=== PATIENT | female | born 1960 | race Caucasian/White ===

== ENCOUNTER 2017-02-15 15:13 | Emergency (ER) | payer MEDICARE, BC ==
[2017-02-15] MEDS ORDERED: Aspirin Low Dose CHEW TAB* 81 MG PO ONE (16:48)
--- NOTE | 2017-02-15 17:09 | RAD ---
INDICATION: Short of breath COMPARISON: Chest x-ray April 22, 2014 TECHNIQUE: An AP portable view obtained at 1657 hours is submitted. FINDINGS: Bones/Soft Tissues: There are no acute bony findings. Cardiomediastinal: The cardiomediastinal silhouette is normal. Lungs: There are no infiltrates. Pleura: There are no pleural effusions. Other: None IMPRESSION: NO ACTIVE DISEASE.
[2017-02-15 17:31] LABS: Hematocrit 42 % (35-47); Hemoglobin 13.8 g/dl (12.0-16.0); Mean Corpuscular HGB Conc 33 g/dl (31-36); Mean Corpuscular Hemoglobin 30 pg (27-31); Mean Corpuscular Volume 90 fL (80-97); Mean Platelet Volume 8 um3 (7.4-10.4); Red Blood Count 4.64 10^6/ul (4.0-5.4); Red Cell Distribution Width 13 % (10.5-15); White Blood Count 8.3 10^3/ul (3.5-10.8)
[2017-02-15 17:46] LABS: Albumin 4.2 g/dL (3.2-5.2); BUN/Creatinine Ratio 20.8 (8-20); EGFR Non-African American 83.2 (>60); Globulin 3.4 g/dL (2-4); Potassium 3.3 mmol/L (3.5-5.0); Total Bilirubin 0.3 mg/dL (0.2-1.0); Total Protein 7.6 g/dL (6.4-8.9)
[2017-02-15 18:18] LABS: TSH (Thyroid Stimulating Horm) 0.83 mcIU/mL (0.34-5.60)
[2017-02-15] MEDS ORDERED: Butalb/Acetamin/Caff TAB* 1 TAB PO ONE (19:27)
[2017-02-15] MEDS ORDERED: Metoclopramide IV* 5 MG/ML 2 ML VIAL IV ONE (19:40)
[2017-02-15] MEDS ORDERED: NS 0.9% 1000 ML* 1,000 ML IV ONE (19:40)
[2017-02-15] MEDS ORDERED: diPHENhydraMINE IV* 50 MG/ML 1 ml VIAL (BENADRYL) IV ONE (19:40)
[2017-02-15] MEDS ORDERED: Ketorolac INJ* 30 MG/ML 1 ML VIAL IV ONE (19:40)
[2017-02-15] MEDS ORDERED: predniSONE TAB* 20 MG PO ONE (21:43)
[2017-02-15] MEDS ORDERED: Clarithromycin TAB* 500 MG PO ONE (21:43)
[2017-02-15 21:50] VITALS: BP 138/85
--- NOTE | 2017-02-17 16:54 | ED ---
I, Kahlil,Sanchez, scribed for Larry Paris MD on 02/15/17 at 1709 . Shortness of Breath - HPI Summary HPI Summary: This 57 y/o female presents to ED for acute on chronic SOB since 0100 AM this morning. Exertion and ambulation make SOB worse. Positive mild chest discomfort , nausea, and dizziness. PMHx is significant for COPD, fibromyalgia, HTN, thyroid disease, and HLD. Primary care involves Dr. Abbott, but does not involve any chemist internship. - History of Current Complaint Chief Complaint: EDShortnessOfBreath Time Seen by Provider: 02/15/17 16:24 Hx Obtained From: Patient, Medical Records Onset/Duration: Still Present Timing: Constant Aggrevating Factors: Nothing Alleviating Factors: Nothing Associated Signs & Symptoms: Chest Pain Unrelated to Cough - Allergy/Home Medications Allergies/Adverse Reactions: Allergies Allergy/AdvReac Type Severity Reaction Status Date / Time No Known Allergies Allergy Verified 08/19/12 14:11 Home Medications: Home Medications DULoxetine DR CAP* [Cymbalta CAP*] 120 mg PO DAILY 02/15/17 [History Confirmed 02/15/17] Estradiol (NF) 1 mg PO DAILY 02/15/17 [History Confirmed 02/15/17] Fluticas/Salmet 115/21 HFA(NF) [Advair HFA 115/21 (NF)] 2 puff INH BID 02/15/17 [History Confirmed 02/15/17] Thyroid TAB* [Thyroid TAB 60 MG*] 60 mg PO [id number] 02/15/17 [History Confirmed 02/15/17] traZODone TAB* [Desyrel TAB*] 50 - 100 mg PO BEDTIME PRN 02/15/17 [History Confirmed 02/15/17] PMH/Surg Hx/FS Hx/Imm Hx Endocrine/Hematology History: Reports: Hx Thyroid Disease - HYPOTHYROIDISM Denies: Hx Diabetes Cardiovascular History: Reports: Hx Angina, Hx Hypercholesterolemia, Hx Hypertension - MEDICATED, Other Cardiovascular Problems/Disorders - NEGATIVE [place]ARDIAC [place] [facility] [place] Denies: Hx Coronary Artery Disease, Hx Myocardial Infarction, Hx Pacemaker/ ICD, Hx Valvular Heart Disease Respiratory History: Reports: Hx Asthma Denies: Hx Chronic Obstructive Pulmonary Disease (COPD) GI History: Reports: Hx Irritable Bowel, Other GI Disorders - RETROPERTINEAL HERNIA Musculoskeletal History: Reports: Hx Orthopedic Injury - FX RIGHT FOOT WITH ORTHOBOOT ON Sensory History: Reports: Hx Contacts or Glasses Denies: Hx Hearing Aid Opthamlomology History: Reports: Hx Contacts or Glasses Neurological History: Reports: Hx Migraine - ON MEDICATIONS Comment Only: Other Neuro Impairments/Disorders - FYBROMYALGIA Psychiatric History: Reports: Hx Anxiety, Hx Depression Denies: Hx Panic Disorder - Cancer History Hx Chemotherapy: No Hx Radiation Therapy: No - Surgical History Surgery Procedure, Year, and Place: 6 OVARIAN SURGERYS (TUBAL SX & REVERSAL) AT [facility] [place] [facility] [place]STERECTOM[place]. CARDIAC C[place] 2001 @ [facility] [place] Hx Anesthesia Reactions: No - Immunization History Date of Tetanus Vaccine: UTD Date of Influenza Vaccine: UTD Infectious Disease History: No Infectious Disease History: Denies: Hx Clostridium Difficile, Hx Hepatitis, Hx Human Immunodeficiency Virus (HIV), Hx of Known/Suspected MRSA, Hx Shingles, Hx Tuberculosis, Hx Known/ Suspected VRE, Hx Known/Suspected VRSA, History Other Infectious Disease, Traveled Outside the [place] in Last 30 Days - Family History Known Family History: Positive: Other - Breast CA - Social History Alcohol Use: None Hx Substance Use: No Substance Use Type: Reports: None Hx Tobacco Use: Yes Review of Systems Negative: Fever Positive: Chest Pain - mild Positive: Shortness Of Breath Positive: Nausea. Negative: Vomiting Neurological: Other - Positive for dizziness All Other Systems Reviewed And Are Negative: Yes Physical Exam Triage Information Reviewed: Yes Vital Signs On Initial Exam: Initial Vitals Temp Pulse Resp BP Pulse Ox 97.7 F 75 20 133/88 100 02/15/17 15:15 02/15/17 15:15 02/15/17 15:15 02/15/17 15:15 02/15/17 15:15 Vital Signs Reviewed: Yes Skin: Positive: Warm, Skin Color Reflects Adequate Perfusion, Dry Head/Face: Positive: Normal Head/Face Inspection Eyes: Positive: Normal ENT: Positive: Normal ENT inspection Neck: Positive: Supple, Nontender Respiratory/Lung Sounds: Positive: Clear to Auscultation, Breath Sounds Present Cardiovascular: Positive: RRR, Pulses are Symmetrical in both Upper and Lower Extremities Abdomen Description: Positive: Nontender, Soft Musculoskeletal: Positive: Normal Neurological: Positive: Normal Psychiatric: Positive: Affect/Mood Appropriate AVPU Assessment: Alert Diagnostics - Vital Signs Vital Signs Temp Pulse Resp BP Pulse Ox 02/15/17 16:29 97.4 F 60 18 00/00 100 02/15/17 15:15 97.7 F 75 20 133/88 100 - Laboratory Lab Results: Lab Results 02/15/17 02/15/17 02/15/17 Range/Units 17:15 17:15 17:15 WBC 8.3 (3.5-10.8) 10^3/ul RBC 4.64 (4.0-5.4) 10^6/ul Hgb 13.8 (12.0-16.0) g/dl Hct 42 (35-47) % MCV 90 (80-97) fL MCH 30 (27-31) pg MCHC 33 (31-36) g/dl RDW 13 (10.5-15) % Plt Count 223 (150-450) 10^3/ul MPV 8 (7.4-10.4) um3 Neut % (Auto) 58.8 (38-83) % Lymph % (Auto) 33.6 (25-47) % Mcclain % (Auto) 6.3 (1-9) % Eos % (Auto) 0.7 (0-6) % Baso % (Auto) 0.6 (0-2) % Absolute Neuts (auto) 4.9 (1.5-7.7) 10^3/ul Absolute Lymphs (auto) 2.8 (1.0-4.8) 10^3/ul Absolute Monos (auto) 0.5 (0-0.8) 10^3/ul Absolute Eos (auto) 0.1 (0-0.6) 10^3/ul Absolute Basos (auto) 0.1 (0-0.2) 10^3/ul Absolute Nucleated RBC 0 10^3/ul Nucleated RBC % 0 INR (Anticoag Therapy) (0.89-1.11) D-Dimer, Quantitative (Less Than 230) ng/mL Sodium 137 (133-145) mmol/L Potassium 3.3 L (3.5-5.0) mmol/L Chloride 105 (101-111) mmol/L Carbon Dioxide 25 (22-32) mmol/L Anion Gap 7 (2-11) mmol/L BUN 15 (6-24) mg/dL Creatinine 0.72 (0.51-0.95) mg/dL Est GFR ( Amer) 107.0 (>60) Est GFR (Non-Af Amer) 83.2 (>60) BUN/Creatinine Ratio 20.8 H (8-20) Glucose 105 H (70-100) mg/dL Lactic Acid 1.8 (0.5-2.0) mmol/L Calcium 9.0 (8.6-10.3) mg/dL Total Bilirubin 0.30 (0.2-1.0) mg/dL AST 26 (13-39) U/L ALT 19 (7-52) U/L Alkaline Phosphatase 83 (34-104) U/L Troponin I 0.00 (<0.04) ng/mL B-Natriuretic Peptide ( - 100) pg/mL Total Protein 7.6 (6.4-8.9) g/dL Albumin 4.2 (3.2-5.2) g/dL Globulin 3.4 (2-4) g/dL Albumin/Globulin Ratio 1.2 (1-3) TSH 0.83 (0.34-5.60) mcIU/mL 02/15/17 02/15/17 02/15/17 Range/Units 17:15 17:15 19:45 WBC (3.5-10.8) 10^3/ul RBC (4.0-5.4) 10^6/ul Hgb (12.0-16.0) g/dl Hct (35-47) % MCV (80-97) fL MCH (27-31) pg MCHC (31-36) g/dl RDW (10.5-15) % Plt Count (150-450) 10^3/ul MPV (7.4-10.4) um3 Neut % (Auto) (38-83) % Lymph % (Auto) (25-47) % Mcclain % (Auto) (1-9) % Eos % (Auto) (0-6) % Baso % (Auto) (0-2) % Absolute Neuts (auto) (1.5-7.7) 10^3/ul Absolute Lymphs (auto) (1.0-4.8) 10^3/ul Absolute Monos (auto) (0-0.8) 10^3/ul Absolute Eos (auto) (0-0.6) 10^3/ul Absolute Basos (auto) (0-0.2) 10^3/ul Absolute Nucleated RBC 10^3/ul Nucleated RBC % INR (Anticoag Therapy) 1.00 (0.89-1.11) D-Dimer, Quantitative < 200 (Less Than 230) ng/mL Sodium (133-145) mmol/L Potassium (3.5-5.0) mmol/L Chloride (101-111) mmol/L Carbon Dioxide (22-32) mmol/L Anion Gap (2-11) mmol/L BUN (6-24) mg/dL Creatinine (0.51-0.95) mg/dL Est GFR ( Amer) (>60) Est GFR (Non-Af Amer) (>60) BUN/Creatinine Ratio (8-20) Glucose (70-100) mg/dL Lactic Acid (0.5-2.0) mmol/L Calcium (8.6-10.3) mg/dL Total Bilirubin (0.2-1.0) mg/dL AST (13-39) U/L ALT (7-52) U/L Alkaline Phosphatase (34-104) U/L Troponin I 0.00 (<0.04) ng/mL B-Natriuretic Peptide 75 ( - 100) pg/mL Total Protein (6.4-8.9) g/dL Albumin (3.2-5.2) g/dL Globulin (2-4) g/dL Albumin/Globulin Ratio (1-3) TSH (0.34-5.60) mcIU/mL Result Diagrams: 02/15/17 17:15 02/15/17 17:15 Lab Statement: Any lab studies that have been ordered have been reviewed, and results considered in the medical decision making process. - Radiology CXR Xray Interpretation: No Acute Changes Radiology Interpretation Completed By: Radiologist - EKG 1520 Cardiac Rate: NL EKG Rhythm: Sinus Rhythm EKG Interpretation: LBBB, new from 06/13/2013 Re-Evaluation - Re-Evaluation First Eval Re-Evaluation Time: 21:15 Comment: in room to update pt on labwork with repeat trop, CXR, and EKG. Plan of care involving discharge and outpatient f/u is discussed, and she is agreeable. Course/Dx - Course Course Of Treatment: Ms. Castillo presented for mild SOB and a new mildly productive cough on top of a chronic cough. While here she developed a migraine which she apparently has frequently. She received relief from a ' migraine cocktail' here and was D/C'd with a steroid burst and antibiotics. - Diagnoses Provider Diagnoses: Bronchitis Discharge - Discharge Plan Condition: Stable Disposition: HOME Prescriptions: Clarithromycin TAB* [Biaxin TAB*] 500 mg PO BID #20 tab Prednisone [Deltasone] 20 mg PO BID #12 tab Patient Education Materials: Prednisone (By mouth), Clarithromycin (By mouth), Acute Bronchitis (ED) Referrals: Chip Silva MD [Primary Care Provider] - 2 Days The documentation as recorded by the Kahlil montoya Soohyun accurately reflects the service I personally performed and the decisions made by me, Larry Paris MD.
== END 2017-02-15 21:54 | disposition home or self-care (01) ==
LOC: ED 15:13
DX: J40 Bronchitis, not specified as acute or chronic (principal); I44.7 Left bundle-branch block, unspecified; E03.9 Hypothyroidism, unspecified; J45.909 Unspecified asthma, uncomplicated; I10 Essential (primary) hypertension; E78.00 Pure hypercholesterolemia, unspecified; M79.7 Fibromyalgia; F41.9 Anxiety disorder, unspecified; F32.9 Major depressive disorder, single episode, unspecified
CPT/HCPCS: 36415; 71010; 80053; 83605; 83880; 84443; 84484; 85025; 85379; 85610; 93005; 96360; 96374; 96375; 99284; A9270-GY; J1200; J1885; J2765; J7512

== ENCOUNTER 2017-09-10 15:15 | Observation (INO) | payer MEDICARE, BC ==
[2017-09-10] MEDS ORDERED: NS 0.9% 1000 ML* 1,000 ML IV ONE (15:32)
[2017-09-10] MEDS ORDERED: Ondansetron INJ* 2 MG/ML VIAL IV ONE (15:32)
[2017-09-10] MEDS ORDERED: Albuterol 2.5 MG/3 ML NEB.SOL* (0.083%) INH ONE (15:56)
[2017-09-10] MEDS ORDERED: methylPREDNISolone 125 MG* 2 ML VIAL IV ONE (15:56)
[2017-09-10 16:09] LABS: ABS Basophils 0 10^3/ul (0-0.2); ABS Eosinophils 0 10^3/ul (0-0.6); ABS Lymphocytes 1.5 10^3/ul (1.0-4.8); ABS Monocytes 0.6 10^3/ul (0-0.8); ABS Neutrophils 3.6 10^3/ul (1.5-7.7); ABS Nucleated RBC 0 10^3/ul; Eosinophil % 0.2 % (0-6); Hematocrit 38 % (35-47); Hemoglobin 12.9 g/dl (12.0-16.0); Lymphocyte % 26.8 % (25-47); Mean Corpuscular HGB Conc 34 g/dl (31-36); Mean Corpuscular Hemoglobin 30 pg (27-31); Mean Corpuscular Volume 88 fL (80-97); Mean Platelet Volume 8 um3 (7.4-10.4); Nucleated Red Blood Cells % 0.1; Platelet Count 171 10^3/ul (150-450); Red Cell Distribution Width 13 % (10.5-15); White Blood Count 5.8 10^3/ul (3.5-10.8)
[2017-09-10 16:20] LABS: INR 1.13 (0.77-1.02)
[2017-09-10 16:23] LABS: EGFR Non-African American 104.7 (>60)
--- NOTE | 2017-09-10 16:27 | RAD ---
Indication: Shortness of breath. 2 views of the chest demonstrate no mediastinal shift. Heart is of normal size and configuration. Lung hollings[place] appear clear. When compared to previous exam of February 15, 2017 no significant change is noted. IMPRESSION: NO ACTIVE CARDIOPULMONARY DISEASE IS PRESENT.
[2017-09-10] MEDS ORDERED: Oseltamivir CAP* 75 MG CAP PO ONE (17:02)
[2017-09-10] MEDS ORDERED: Potassium Chlor TAB* 20 MEQ TAB.ER PO ONE (17:03)
[2017-09-10] MEDS ORDERED: Albuterol/Ipratropium NEB.SOL* Albuterol 2.5 MG/Ipratropium 0.5 MG 3 ML INH ONE (17:19)
[2017-09-10] MEDS ORDERED: Meperidine SYRINGE* 50 MG/ML IV ONE (17:20)
[2017-09-10] MEDS ORDERED: Acetaminophen TAB* 325 MG PO PRN (18:09)
[2017-09-10] MEDS ORDERED: Albuterol/Ipratropium NEB.SOL* Albuterol 2.5 MG/Ipratropium 0.5 MG 3 ML INH PRN (18:09)
[2017-09-10] MEDS ORDERED: Benzocaine/Menthol LOZ* 1 LOZENGE MT PRN (18:09)
[2017-09-10] MEDS ORDERED: Phenol 1.4% Spray* 177 ML BTL MT PRN (18:09)
[2017-09-10] MEDS ORDERED: Polyethylene Glycol 3350* 17 GM PACKET PO PRN (18:10)
[2017-09-10] MEDS ORDERED: LORazepam TAB(*) 0.5 MG PO PRN (18:10)
[2017-09-10] MEDS ORDERED: NS 0.9% 1000 ML* 1,000 ML IV SCH (18:15)
[2017-09-10] MEDS ORDERED: Oseltamivir CAP* 75 MG CAP PO SCH (21:00)
[2017-09-10] MEDS ORDERED: traZODone TAB* 50 MG TAB PO SCH (21:00)
[2017-09-10] MEDS ORDERED: Atorvastatin* 20 MG TAB PO SCH (21:00)
[2017-09-10] MEDS: Mometasone/Formoter 200/5 MDI INH SCH (21:19)
[2017-09-10] MEDS: Thyroid TAB* 60 MG PO SCH (21:33)
[2017-09-10] MEDS: Nabumetone TAB* 500 MG PO SCH (21:34)
[2017-09-10] MEDS: Benzonatate CAP* 100 MG PO PRN (21:34)
[2017-09-10] MEDS: Heparin VIAL(*) 5000 UNITS/ML VIAL (FIVE THOUSAND) SUBCUT SCH (21:35)
--- NOTE | 2017-09-10 21:46 | HP ---
CC: Dr. Abbott * ADMISSION HISTORY AND PHYSICAL: DATE OF ADMISSION: 09/10/17 PRIMARY CARE PROVIDER: Dr. Abbott at [place]. MY ATTENDING WHILE IN THE HOSPITAL: Ravinder Griffin MD * (DICTATED BY NICHO MOSELEY) CHIEF COMPLAINT: Two days of flu-like symptoms. HISTORY OF PRESENT ILLNESS: Ms. Castillo is a 57-year-old female with past medical history significant for COPD/asthma, hypertension, migraine, anxiety, depression and dyslipidemia as well as kidney stones who presents with 2 days of cough, sore throat, phlegm production, fatigue, muscle aches and pleuritic chest pain. The patient's had these symptoms starting approximately 1 day before she did. The patient states that her symptoms started mainly with a cough followed by the chest pain and they have been getting progressively worse to the point that it became very difficult for her to breathe. The patient used her rescue inhaler a couple of times a day and states that it helps occasionally. The patient has brought up phlegm frequently that is orange in color and occasionally has a small amount of blood mixed into it. The patient states that when she coughs up phlegm, sometimes she vomits along with it. The patient denies abdominal pain, diarrhea. The patient states she has been in and out of hospital for the last 6 months. She has been admitted 4 separate times for kidney stones mostly with stenting and supportive treatments. The patient states that she had an infection with one of these. The patient denies any other complications that she had with her kidney stones. The patient denies any urinary symptoms at this time including dysuria, hematuria, polyuria, hesitancy or frequent urination. The patient states she has a history of migraines and had a frontal headache with this episode. The patient states that her chest pain is 7/10 at rest worse with movement that spread up her sternum and now also affects her shoulders equally bilaterally. The patient states it is worse when she is coughing and is 10/10 and reproducible with palpation. The patient states she has been having fevers and chills, but denies any diaphoresis specifically related to the chest pain. The patient said she has shortness of breath at all times and it is not worse when she is having chest pain. The patient went to her primary care provider's office and was sent to emergency room by Dr. Sesay due to wheezing and respiratory distress. The patient was given 3 doses of inhalation treatments in the hospital and was given IV Solu-Medrol, all of which helped. The patient was found to be positive for influenza A and was believed to have a COPD exacerbation and was referred for admission. PAST MEDICAL HISTORY: 1. Hypertension. 2. Hypothyroidism. 3. Asthma. 4. COPD. 5. Migraines. 6. Anxiety. 7. Depression. 8. Dyslipidemia. 9. Fibromyalgia. 10. Kidney stones. 11. Pyelonephritis. PAST SURGICAL HISTORY: 1. Hysterectomy. 2. Ureteral stenting. 3. Tubal ligation reversal. MEDICATIONS: 1. Simvastatin 40 mg p.o. at bedtime. 2. Estradiol 1 mg p.o. daily. 3. Thyroid 60 mg p.o. Tuesday, Tuesday, Tuesday, , Tuesday and Tuesday. 4. Advair 115/21, 2 puffs inhalation b.i.d. 5. MiraLax 17 g p.o. daily as needed. 6. Fioricet q.4 hours as needed for headache. 7. Trazodone 50 mg p.o. at bedtime. 8. Duloxetine 60 mg p.o. daily. 9. Relafen 500 mg p.o. b.i.d. 10. Nuvigil 250 mg p.o. q.a.m. 11. Orphenadrine 100 mg p.o. daily. 12. Linzess 290 mcg p.o. daily. 13. Lorazepam 0.5 mg p.o. q.8 hours as needed for anxiety. 14. Atenolol 50 mg p.o. daily. ALLERGIES: No known drug allergies. FAMILY HISTORY: The patient's father of an IA in his 50s. The patient's mother is living and has congestive heart failure and diabetes mellitus. The patient has history of breast, ovarian and skin cancer in the family. SOCIAL HISTORY: The patient has approximate 30 years a pack history of smoking , quit in the year 1999. The patient drinks occasional alcohol, denies ever having illicit drug use. 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 The patient is , has 2 children. REVIEW OF SYSTEMS: A 14-point review of systems was obtained, is negative except as above. PHYSICAL EXAMINATION GENERAL: The patient is a 57-year-old female, who appears stated age and is sitting in the bed, in no acute distress. VITAL SIGNS: At the time of evaluation, temperature 99.9, pulse rate 74, respiratory rate 14, oxygen saturation 98% on room air, blood pressure 119/68. The patient's respiratory rate upon admission to the emergency department was 28. HEENT: Head: Normocephalic, atraumatic. Sclerae anicteric. No conjunctival injection. Nasal mucosa moist without signs of scabs or bleeding. Oral mucosa moist. Pharyngeal erythema without discharge or exudate or postnasal drip. NECK: Supple, nontender. No lymphadenopathy. No carotid bruits auscultated. RESPIRATORY: Diminished at the bilateral bases. No wheezes, rales rhonchi. Good air exchange bilaterally. Egophony negative. CARDIAC: Regular rate and rhythm. No clicks, murmurs, gallops or rubs. Pulses are 2+ in bilateral dorsalis pedis, posterior tibialis and radial areas. No lower extremity edema noted. The patient's chest pain is reproducible with palpation, PMI nondisplaced. ABDOMEN: Soft, nontender, nondistended. Bowel sounds present, normoactive in all 4 quadrants. No hepatosplenomegaly or abdominal bruits auscultated. GENITOURINARY: No suprapubic tenderness or CVA tenderness. SKIN: Clean, dry and intact. No rash. NEURO: Cranial nerves II through XII intact. No focal deficits. Alert and oriented x3. PSYCHIATRIC: Pleasant and cooperative. LABORATORY DATA/DIAGNOSTIC STUDIES: In the emergency department, white blood cell count 5.8, hemoglobin 12.9, hematocrit 38, platelet count 171,000. INR 1.13. D- dimer less than 200. Sodium 134, potassium 3.2, chloride 103, carbon dioxide 21, anion gap 10, BUN 10, creatinine 0.59, glucose 96. Lactic acid 0.9 , calcium 8.7. Total bilirubin 1.3, AST 22, ALT 12, alkaline phosphate 82. Total creatine kinase 55, CK-MB 0.7, troponin I 0.00. CRP 93.42. BNP 33, total protein 6.9, albumin 3.8, globulin 3.1. Influenza A positive. Influenza B negative. Group A Strep negative. Chest x-ray read as no active cardiopulmonary disease. Electrocardiogram read as normal sinus rhythm, rate of 68, left bundle branch block, uninterpretable ST segments. The patient had identical left bundle branch block on previous EKG from last year. This is new since 2013. QTC of 488. No signs of hypertrophy or enlargement, left axis deviation or abnormalities. IMPRESSION: The patient is a 57-year-old female with past medical history significant for chronic obstructive pulmonary disease, asthma, anxiety, migraines, hypertension and dyslipidemia who presents with positive influenza A and a chronic obstructive pulmonary disease exacerbation. The patient will be admitted to observation in the hospital for Tamiflu, steroids, inhalers and supportive care. ASSESSMENT AND PLAN: 1. Chronic obstructive pulmonary disease exacerbation, moderate. The patient had significant wheezing and tachypnea. On arrival to the emergency department , the patient was given Solu-Medrol and inhalation treatments. The patient improves greatly with these, but does not have a nebulizer available at home and only had minimal improvement from her rest inhaler when she took it at home. The patient will benefit from inhalation treatments while in the hospital as well as steroids and fluids and supportive care. The patient is not septic at this time. The patient does not have history of fevers. The patient has no signs of respiratory distress at the time of evaluation. Continue the patient's home LABA and inhaled corticosteroid inhaler. 2. Influenza A. The patient has influenza A likely driving her chronic obstructive pulmonary disease exacerbation. We will restart on Tamiflu for 10 total doses, the first of which she received in the emergency department. Discussed with the patient's family post exposure prophylaxis for her family including small children to whom this flu has been abnormally virulent. 3. Hypertension. Normotensive. Continue atenolol. 4. Hypothyroidism. Continue patient's thyroid medication. 5. Anxiety and depression. Continue Duloxetine. 6. Migraine. The patient's current headache does not fit the description of migraine and likely just represented to coughing and/or the flu. The patient has Tylenol and Relafen available for pain control. 5. Dyslipidemia. Continue the patient's statin. 6. Kidney stones. The patient was on topiramate when she had these kidney stones. The patient's topiramate has been discontinued. We will check urinalysis. The patient has no current symptoms. 7. DVT prophylaxis. The patient is a high risk. We will treat with heparin. 8. FEN. The patient will be on fluids. Normal saline 75 mL an hour. The patient will have a heart healthy diet, caffeine okay. 9. Code status. The patient will be a full code. The patient would like her healthcare proxy to be her daughter, Emir Tran. DISPOSITION: The patient is admitted to observation. TIME SPENT: Approximately 60 minutes were spent on this admission, 30 of which was spent [id number] with the patient obtaining history and physical and discussing the treatment plan. This plan has been discussed with my attending, Dr. Ravinder Griffin, and he is in agreement. NICHO MOSELEY [id number]/CPS #: [id number] MON[place]
--- NOTE | 2017-09-10 22:41 | ED ---
Jason Collins Tiffany, scribed for Genevieve Sommer MD on 09/10/17 at 1615 . Complex/Multi-Sys Presentation - HPI Summary HPI Summary: The patient is a 57 year old F BIBA from Dr. Sesay's office to [facility] complains of cough with brown phlegm since yesterday. The patient rates the pain 6/10 in severity. Symptoms aggravated by nothing. Symptoms alleviated by nothing. Reports chest pain. Says chest hurts every time I breathe and cough. Patient has been sick the past two days. Reports shortness of breath, fever, and body aches. Has had sore throat since yesterday. Began vomiting today so she saw Dr. Sesay. Has history of COPD for which she takes 3 inhalers. Received a nebulizer treatment via EMS enroute from Dr. Sesay's office. - History Of Current Complaint Chief Complaint: EDFluSymptoms Time Seen by Provider: 09/10/17 15:24 Hx Obtained From: Patient, Other: - Dr. Sesay who called ahead Onset/Duration: Gradual Onset, Lasting Days - Since two days ago, Still Present , Worse Since - yesterday and today Timing: Constant Severity Currently: Moderate - 6/10 Severity Initially: Moderate Location: Negative Aggravating Factor(s): Nothing Alleviating Factor(s): Nothing Associated Signs And Symptoms: Positive: Weakness, SOB, Cough, Wheezing, Fever, Other - myalgias - Allergies/Home Medications Allergies/Adverse Reactions: Allergies Allergy/AdvReac Type Severity Reaction Status Date / Time morphine Allergy Itching Verified 09/10/17 15:37 Home Medications: Home Medications Armodafinil (NF) [Nuvigil (NF)] 250 mg PO QAM 09/10/17 [History Confirmed ] Atenolol TAB* [Tenormin TAB* 50 MG] 50 mg PO DAILY 09/10/17 [History Confirmed 09/10/17] Butalbital/Aspirin/Caffeine [Rfdgjsgbwj-NII-Raltcyti Cap] 1 each PO Q4HR PRN [History Confirmed 09/10/17] DULoxetine DR CAP* [Cymbalta CAP*] 60 mg PO DAILY 09/10/17 [History Confirmed ] LORazepam TAB(*) [Ativan 0.5 MG TAB (*)] 0.5 mg PO Q8H PRN 09/10/17 [History Confirmed 09/10/17] Linaclotide (NF) [Linzess (NF)] 290 mcg PO DAILY 09/10/17 [History Confirmed ] Nabumetone TAB* [Relafen TAB*] 500 mg PO BID 09/10/17 [History Confirmed ] Orphenadrine Citrate 100 mg PO DAILY 09/10/17 [History Confirmed 09/10/17] Polyethylene Glycol 3350* [Miralax*] 17 gm PO DAILY PRN 09/10/17 [History Confirmed 09/10/17] traZODone TAB* [Desyrel TAB*] 50 mg PO BEDTIME 09/10/17 [History Confirmed 09/10] PMH/Surg Hx/FS Hx/Imm Hx Previously Healthy: No Endocrine/Hematology History: Reports: Hx Thyroid Disease - HYPOTHYROIDISM Denies: Hx Diabetes Cardiovascular History: Reports: Hx Angina, Hx Hypercholesterolemia, Hx Hypertension - MEDICATED, Other Cardiovascular Problems/Disorders - NEGATIVE CARDIAC CATH 2001 @ [facility] – [place] Denies: Hx Coronary Artery Disease, Hx Myocardial Infarction, Hx Pacemaker/ ICD, Hx Valvular Heart Disease Respiratory History: Reports: Hx Asthma, Hx Chronic Obstructive Pulmonary Disease (COPD) GI History: Reports: Hx Irritable Bowel Musculoskeletal History: Reports: Hx Orthopedic Injury - FX RIGHT FOOT Sensory History: Reports: Hx Contacts or Glasses Denies: Hx Hearing Aid Opthamlomology History: Reports: Hx Contacts or Glasses Neurological History: Reports: Hx Migraine Comment Only: Other Neuro Impairments/Disorders - FYBROMYALGIA Psychiatric History: Reports: Hx Anxiety, Hx Depression Denies: Hx Panic Disorder - Cancer History Hx Chemotherapy: No Hx Radiation Therapy: No - Surgical History Surgery Procedure, Year, and Place: 6 OVARIAN SURGERYS (TUBAL SX & REVERSAL) AT [facility] and [facility] [place]. HYSTERECTOMY. CARDIAC CATH 2001 @ [facility] – [place] Hx Anesthesia Reactions: No - Immunization History Date of Tetanus Vaccine: UTD Date of Influenza Vaccine: UTD Infectious Disease History: No Infectious Disease History: Denies: Hx Clostridium Difficile, Hx Hepatitis, Hx Human Immunodeficiency Virus (HIV), Hx of Known/Suspected MRSA, Hx Shingles, Hx Tuberculosis, Hx Known/ Suspected VRE, Hx Known/Suspected VRSA, History Other Infectious Disease, Traveled Outside the [place] in Last 30 Days - Family History Known Family History: Positive: Cardiac Disease - Father with CO at 50, Other - Breast CA - Social History Lives: With Family Alcohol Use: None Hx Substance Use: No Substance Use Type: Reports: None Hx Tobacco Use: Yes Smoking Status (MU): Former Smoker Review of Systems Positive: Fever Positive: Sore Throat Positive: Chest Pain - chest hurts every time I breathe and cough" Positive: Shortness Of Breath, Cough - With brown phlegm Positive: Vomiting Positive: Myalgia Positive: Weakness - generalized Psychological: Normal All Other Systems Reviewed And Are Negative: Yes Physical Exam - Summary Physical Exam Summary: Appearance: Ill-appearing, uncomfortable, Well-nourished, short of breath at rest, dry heaves Skin: Warm, color reflects adequate perfusion Head: Normal Head/Face inspection Eyes: Conjunctiva clear ENT: pharynx was red, no tonsilar enlargement, no exudates, TMs are clear Neck: Supple, no nodes, no JVD. Respiratory: wheezes bilaterally, expiratory throughout Cardio: RRR, No murmur, pulses normal, brisk capillary refill Abdomen: soft, nontender, no masses Bowel sounds: present Musculoskeletal: Strength Intact/ ROM intact. No calf tenderness. No edema. Neuro: Alert, muscle tone normal, facial symmetry, speech normal, sensory/motor intact Psychological: Normal Triage Information Reviewed: Yes Vital Signs On Initial Exam: Initial Vitals BP 119/69 09/10/17 15:31 Vital Signs Reviewed: Yes Diagnostics - Vital Signs Vital Signs Temp Pulse Resp BP Pulse Ox 09/10/17 15:37 99.9 F 74 28 119/69 98 09/10/17 15:33 72 98 09/10/17 15:31 119/69 - Laboratory Lab Results: Lab Results 09/10/17 09/10/17 09/10/17 Range/Units 15:57 15:57 15:57 WBC 5.8 (3.5-10.8) 10^3/ul RBC 4.30 (4.0-5.4) 10^6/ul Hgb 12.9 (12.0-16.0) g/dl Hct 38 (35-47) % MCV 88 (80-97) fL MCH 30 (27-31) pg MCHC 34 (31-36) g/dl RDW 13 (10.5-15) % Plt Count 171 (150-450) 10^3/ul MPV 8 (7.4-10.4) um3 Neut % (Auto) 62.3 (38-83) % Lymph % (Auto) 26.8 (25-47) % Dillingham % (Auto) 10.2 H (0-7) % Eos % (Auto) 0.2 (0-6) % Baso % (Auto) 0.5 (0-2) % Absolute Neuts (auto) 3.6 (1.5-7.7) 10^3/ul Absolute Lymphs (auto) 1.5 (1.0-4.8) 10^3/ul Absolute Monos (auto) 0.6 (0-0.8) 10^3/ul Absolute Eos (auto) 0 (0-0.6) 10^3/ul Absolute Basos (auto) 0 (0-0.2) 10^3/ul Absolute Nucleated RBC 0 10^3/ul Nucleated RBC % 0.1 INR (Anticoag Therapy) (0.77-1.02) D-Dimer, Quantitative (Less Than 230) ng/mL Sodium 134 (133-145) mmol/L Potassium 3.2 L (3.5-5.0) mmol/L Chloride 103 (101-111) mmol/L Carbon Dioxide 21 L (22-32) mmol/L Anion Gap 10 (2-11) mmol/L BUN 10 (6-24) mg/dL Creatinine 0.59 (0.51-0.95) mg/dL Est GFR ( Amer) 134.6 (>60) Est GFR (Non-Af Amer) 104.7 (>60) BUN/Creatinine Ratio 16.9 (8-20) Glucose 96 (70-100) mg/dL Lactic Acid (0.5-2.0) mmol/L Calcium 8.7 (8.6-10.3) mg/dL Total Bilirubin 0.30 (0.2-1.0) mg/dL AST 22 (13-39) U/L ALT 12 (7-52) U/L Alkaline Phosphatase 82 (34-104) U/L Total Creatine Kinase 55 (10-223) U/L CK-MB (CK-2) 0.7 (0.6-6.3) ng/mL Troponin I 0.00 (<0.04) ng/mL C-Reactive Protein 93.42 H (< 5.00) mg/L B-Natriuretic Peptide 33 ( - 100) pg/mL Total Protein 6.9 (6.4-8.9) g/dL Albumin 3.8 (3.2-5.2) g/dL Globulin 3.1 (2-4) g/dL Albumin/Globulin Ratio 1.2 (1-3) Procalcitonin (<0.6) ng/mL Influenza A (Rapid) (Negative) Influenza B (Rapid) (Negative) Group A Strep Rapid (Negative) 09/10/17 09/10/17 09/10/17 Range/Units 15:57 15:57 15:58 WBC (3.5-10.8) 10^3/ul RBC (4.0-5.4) 10^6/ul Hgb (12.0-16.0) g/dl Hct (35-47) % MCV (80-97) fL MCH (27-31) pg MCHC (31-36) g/dl RDW (10.5-15) % Plt Count (150-450) 10^3/ul MPV (7.4-10.4) um3 Neut % (Auto) (38-83) % Lymph % (Auto) (25-47) % Dillingham % (Auto) (0-7) % Eos % (Auto) (0-6) % Baso % (Auto) (0-2) % Absolute Neuts (auto) (1.5-7.7) 10^3/ul Absolute Lymphs (auto) (1.0-4.8) 10^3/ul Absolute Monos (auto) (0-0.8) 10^3/ul Absolute Eos (auto) (0-0.6) 10^3/ul Absolute Basos (auto) (0-0.2) 10^3/ul Absolute Nucleated RBC 10^3/ul Nucleated RBC % INR (Anticoag Therapy) 1.13 H (0.77-1.02) D-Dimer, Quantitative < 200 (Less Than 230) ng/mL Sodium (133-145) mmol/L Potassium (3.5-5.0) mmol/L Chloride (101-111) mmol/L Carbon Dioxide (22-32) mmol/L Anion Gap (2-11) mmol/L BUN (6-24) mg/dL Creatinine (0.51-0.95) mg/dL Est GFR ( Amer) (>60) Est GFR (Non-Af Amer) (>60) BUN/Creatinine Ratio (8-20) Glucose (70-100) mg/dL Lactic Acid 0.9 (0.5-2.0) mmol/L Calcium (8.6-10.3) mg/dL Total Bilirubin (0.2-1.0) mg/dL AST (13-39) U/L ALT (7-52) U/L Alkaline Phosphatase (34-104) U/L Total Creatine Kinase (10-223) U/L CK-MB (CK-2) (0.6-6.3) ng/mL Troponin I (<0.04) ng/mL C-Reactive Protein (< 5.00) mg/L B-Natriuretic Peptide ( - 100) pg/mL Total Protein (6.4-8.9) g/dL Albumin (3.2-5.2) g/dL Globulin (2-4) g/dL Albumin/Globulin Ratio (1-3) Procalcitonin < 0.1 (<0.6) ng/mL Influenza A (Rapid) (Negative) Influenza B (Rapid) (Negative) Group A Strep Rapid (Negative) 09/10/17 09/10/17 Range/Units 16:03 16:03 WBC (3.5-10.8) 10^3/ul RBC (4.0-5.4) 10^6/ul Hgb (12.0-16.0) g/dl Hct (35-47) % MCV (80-97) fL MCH (27-31) pg MCHC (31-36) g/dl RDW (10.5-15) % Plt Count (150-450) 10^3/ul MPV (7.4-10.4) um3 Neut % (Auto) (38-83) % Lymph % (Auto) (25-47) % Dillingham % (Auto) (0-7) % Eos % (Auto) (0-6) % Baso % (Auto) (0-2) % Absolute Neuts (auto) (1.5-7.7) 10^3/ul Absolute Lymphs (auto) (1.0-4.8) 10^3/ul Absolute Monos (auto) (0-0.8) 10^3/ul Absolute Eos (auto) (0-0.6) 10^3/ul Absolute Basos (auto) (0-0.2) 10^3/ul Absolute Nucleated RBC 10^3/ul Nucleated RBC % INR (Anticoag Therapy) (0.77-1.02) D-Dimer, Quantitative (Less Than 230) ng/mL Sodium (133-145) mmol/L Potassium (3.5-5.0) mmol/L Chloride (101-111) mmol/L Carbon Dioxide (22-32) mmol/L Anion Gap (2-11) mmol/L BUN (6-24) mg/dL Creatinine (0.51-0.95) mg/dL Est GFR ( Amer) (>60) Est GFR (Non-Af Amer) (>60) BUN/Creatinine Ratio (8-20) Glucose (70-100) mg/dL Lactic Acid (0.5-2.0) mmol/L Calcium (8.6-10.3) mg/dL Total Bilirubin (0.2-1.0) mg/dL AST (13-39) U/L ALT (7-52) U/L Alkaline Phosphatase (34-104) U/L Total Creatine Kinase (10-223) U/L CK-MB (CK-2) (0.6-6.3) ng/mL Troponin I (<0.04) ng/mL C-Reactive Protein (< 5.00) mg/L B-Natriuretic Peptide ( - 100) pg/mL Total Protein (6.4-8.9) g/dL Albumin (3.2-5.2) g/dL Globulin (2-4) g/dL Albumin/Globulin Ratio (1-3) Procalcitonin (<0.6) ng/mL Influenza A (Rapid) Positive H (Negative) Influenza B (Rapid) Negative (Negative) Group A Strep Rapid Negative (Negative) Result Diagrams: 09/11/17 05:22 09/11/17 05:22 Lab Statement: Any lab studies that have been ordered have been reviewed, and results considered in the medical decision making process. - Radiology CXR Radiology Interpretation Completed By: Radiologist - NO ACTIVE CARDIOPULMONARY DISEASE IS PRESENT. ED physician has reviewed this radiology report. - EKG 15:38 Cardiac Rate: NL - 68 BPM EKG Rhythm: Sinus Rhythm ST Segment: Non-Specific Ectopy: None EKG Interpretation: Nml AV. Prolonged IVCT with LBBB. Nml QTc. Negative axis -8. EKG Comparison: No Significant Change - Compared to 02/15/17 Re-Evaluation - Re-Evaluation First Eval Re-Evaluation Time: 17:02 Change: Unchanged Comment: Patient reports chest pain and is still wheezing. She is informed about Influenza A. She agrees to be admitted. Complex Multi-Symp Course/Dx Course Of Treatment: Allergies noted. High blood pressure noted. Medications reviewed this visit. EKG no change from 02/15/17. Nml CXR. Given Albuterol by EMS en route and in ED course. Tested positive for Influenza A. Diagnosed with COPD exacerbation, hypokalemia and Influenza A. Discussed with Dr. Sesay at 17: 12, who agrees with admission plan and who will look for patients phone that is reported missing per patient. At 17:25, Dr. Sesay called back to say she spoke with Dr. Gray Drew who looked in all of the patient rooms and reported that he couldn't find patient's phone, and that the cleaning crew had already left and could possibly have her phone in safe keeping, or patient left phone in her car. Consulted with hospitalist who agrees to admission. Patient agreeable to admission. - Diagnoses Provider Diagnoses: Influenza A, COPD exacerbation, Hypokalemia - Physician Notifications Discussed Care Of Patient With: Ravinder Griffin Time Discussed With Above Provider: 17:29 Instructed by Provider To: Other - Dr. Griffin agrees to admit patient. Discharge - Discharge Plan Condition: Stable Disposition: ADMITTED TO [facility] documentation as recorded by the Jason montoya Tiffany accurately reflects the service I personally performed and the decisions made by me, Genevieve Sommer MD.
[2017-09-11] MEDS: Heparin VIAL(*) 5000 UNITS/ML VIAL (FIVE THOUSAND) SUBCUT SCH ×2 (05:26→13:18)
[2017-09-11 05:43] LABS: ABS Basophils 0 10^3/ul (0-0.2); ABS Eosinophils 0 10^3/ul (0-0.6); ABS Monocytes 0.6 10^3/ul (0-0.8); ABS Neutrophils 2.6 10^3/ul (1.5-7.7); ABS Nucleated RBC 0 10^3/ul; Eosinophil % 0 % (0-6); Hematocrit 34 % (35-47); Hemoglobin 11.7 g/dl (12.0-16.0); Lymphocyte % 23.8 % (25-47); Mean Corpuscular HGB Conc 34 g/dl (31-36); Mean Corpuscular Hemoglobin 31 pg (27-31); Mean Corpuscular Volume 90 fL (80-97); Mean Platelet Volume 8 um3 (7.4-10.4); Nucleated Red Blood Cells % 0; Platelet Count 160 10^3/ul (150-450); Red Blood Count 3.84 10^6/ul (4.0-5.4); Red Cell Distribution Width 14 % (10.5-15); White Blood Count 4.2 10^3/ul (3.5-10.8)
[2017-09-11 06:00] LABS: EGFR Non-African American 123.9 (>60)
[2017-09-11] MEDS: Mometasone/Formoter 200/5 MDI INH SCH (07:08)
[2017-09-11] MEDS ORDERED: Butalb/Acetamin/Caff TAB* 1 TAB PO PRN (08:29)
[2017-09-11] MEDS ORDERED: Oseltamivir CAP* 75 MG CAP PO SCH (09:00)
[2017-09-11] MEDS ORDERED: Atenolol TAB* 50 MG PO SCH (09:00)
[2017-09-11] MEDS ORDERED: DULoxetine DR CAP* 60 MG CAP.DR PO SCH (09:00)
[2017-09-11] MEDS ORDERED: predniSONE TAB* 20 MG PO SCH (09:00)
[2017-09-11] MEDS: Nabumetone TAB* 500 MG PO SCH (09:33)
[2017-09-11] MEDS: Benzonatate CAP* 100 MG PO PRN (09:39)
[2017-09-11] MEDS: Thyroid TAB* 60 MG PO SCH (09:39)
[2017-09-11] MEDS ORDERED: Al Hydrox/Mg Hydrox/Simet LIQ* 30 ML UDC PO PRN (09:44)
[2017-09-11] MEDS ORDERED: oxyCODONE TAB* 5 MG TAB PO ONE (11:34)
[2017-09-11 14:02] VITALS: BP 140/77
[2017-09-11 14:33] LABS: Urine Appearance Clear; Urine Blood Negative (Negative); Urine Color Yellow; Urine Ketones Negative (Negative); Urine Protein Negative (Negative); Urine Specific Gravity 1.008 (1.010-1.030); Urine Urobilinogen Negative (Negative)
--- NOTE | 2017-09-12 12:10 | DS ---
CC: Dr. Saavedra [place]; Dr. Aponte. * DISCHARGE SUMMARY: DATE OF ADMISSION: 09/10/17 DATE OF DISCHARGE: 09/11/17 PRIMARY CARE PROVIDER: Dr. Saavedra [place]. MY ATTENDING WHILE IN THE HOSPITAL: Dr. Ravinder Griffin.* (DICTATED BY NICHO MOSELEY) PRIMARY DISCHARGE DIAGNOSES: Influenza A, mild chronic obstructive pulmonary disease exacerbation, hemoptysis. PRIMARY OUTPATIENT COLLOID MILL OPERATOR: Dr. Aponte. SECONDARY DISCHARGE DIAGNOSES: Hypertension, hypothyroidism, asthma, migraines , anxiety, depression, dyslipidemia, fibromyalgia, known pulmonary nodule with associated lymphadenopathy, kidney stones, pyelonephritis. STUDIES DONE WHILE IN THE HOSPITAL: Chest x-ray from 09/10/17 shows no active cardiopulmonary disease, electrocardiogram from 09/10/17 shows left bundle branch block, left axis deviation, ST segment is consistent with previous exam, rate of 68, QTc of 488, no ectopy. No other abnormalities. MEDICATIONS AT DISCHARGE: 1. Simvastatin 40 mg p.o. at bedtime. 2. Estradiol 1 mg p.o. daily. 3. Thyroid tab 60 mg p.o. Tuesday, Tuesday, Tuesday, , Tuesday and Tuesday. 4. Advair 115/21, two puffs inhalation b.i.d. 5. Polyethylene glycol 17 g p.o. daily as needed. 6. Fioricet 1 tab p.o. q. 4 hours as needed for migraine. 7. Trazodone 50 mg p.o. at bedtime. 8. Duloxetine 50 mg p.o. daily. 9. Relafen 500 mg p.o. b.i.d. 10. Nuvigil 250 mg p.o. q.a.m. 11. Orphenadrine citrate 100 mg p.o. daily. 12. Linzess 290 mcg p.o. daily. 13. Lorazepam 0.5 mg p.o. q. 8 hours as needed. 14. Atenolol 50 mg p.o. daily. 15. Tylenol 650 mg p.o. q. 6 hours as needed. 16. Benzonatate 100 mg p.o. b.i.d. as needed. 17. Tamiflu 75 mg p.o. b.i.d. x8. 18. Prednisone 60 mg p.o. daily x3. New medications at discharge: 1. Tylenol. 2. Benzonatate. 3. Tamiflu. 4. Prednisone. Medication discontinued at discharge: None. Of note, she has 2 unknown inhalers at home that she could not remember the names of that she should continue. HOSPITAL COURSE: This is a brief summary of the patient's presentation. For more details, please see history and physical from this author on 09/10/17. In brief, patient is a 57-year-old female with past medical history significant for the above who presented with 2 days of cough, sore throat, phlegm production , pleuritic chest pain, and muscle aches with known exposure to the flu. The patient had significantly increased wheezing, cough and small amount of hemoptysis infrequently. The patient also had post tussive vomiting. The patient denied any other recent illnesses or other associated symptoms. The patient was sent in from primary care provider due to wheezing and respiratory distress. The patient was given Solu-Medrol inhalation treatments in the emergency department and improved greatly, but due to her respiratory distress was admitted to the hospital. The patient was found to be positive for influenza A. The patient had an uneventful night, improved significantly with inhalers and prednisone. The patient had a migraine while in the hospital, which was unresponsive to Relafen and Fioricet but did respond to oxycodone. The patient denied any other complaints in the morning, but was very concerned about her hemoptysis. The patient has known pulmonary nodules found in the workup that she previously had for kidney stones. The patient follows with Dr. Aponte outpatient and who is aware of these nodules and recommended followup. The patient was amenable to having these followed up with Dr. Aponte in the near future. PHYSICAL EXAMINATION ON DAY OF DISCHARGE: General: The patient is a 57-year- old female who appears her stated age and sitting comfortably in bed, in no acute distress. Vital Signs: At the time of discharge, temperature 98.5, pulse rate 69, respiratory rate 18, oxygen saturation 98% on room air, blood pressure 144/70. HEENT: Head normocephalic, atraumatic. Sclerae anicteric. No conjunctival injection. Nasal mucosa moist. No signs of nosebleed or scabbing. Oral mucosa moist. Significant pharyngeal erythema without exudates or postnasal drip. Neck: Supple, nontender. No lymphadenopathy. No carotid bruit auscultated. Cardiac: Regular rate and rhythm. No clicks, murmurs, gallops, or rubs. Pulses 2+ in the bilateral dorsalis pedis, posterior tibialis , and radial areas. Respiratory: Clear to auscultation bilaterally. No wheezes, rales, or rhonchi. Diminished breath sounds throughout. Abdomen: Soft, nontender, nondistended. Bowel sounds present, normoactive in all 4 quadrants. No hepatosplenomegaly. No abdominal bruits auscultated. Genitourinary: No suprapubic tenderness or CVA tenderness. Skin: Clean, dry, and intact. No rash. Neuro: Cranial nerves II through XII intact. No focal deficits. Normal gait. Psychiatric: Patient is anxious, but otherwise pleasant and cooperative. DIAGNOSTIC STUDIES/LAB DATA: Laboratory data from day of discharge; white blood cell count 4.2, hemoglobin 11.7, hematocrit 34, platelet count 160. Sodium 137, potassium 4.0, chloride 109, carbon dioxide 23, anion gap 5, BUN 11 , creatinine 0.51, glucose 135, calcium 8.4, magnesium 2.2. Other laboratory data of note from admission; CRP 93.4, on admission influenza A positive, Group B negative, group Beta Strep rapid negative. Procalcitonin less than 0.1. DISCHARGE PLAN: The patient will be discharged to home. Discussed with the patient continuing treatment for her COPD and her influenza including Tamiflu, prednisone and her rescue and maintenance inhalers as prescribed at home. It has been discussed with patient's family, which includes small children that they should obtain Tamiflu prescriptions for and take them from prophylaxis from the flu. The patient should follow up in [address] Aponte to discuss her hospitalization and her hemoptysis and followup on her pulmonary nodules with hilar lymphadenopathy as these are all concerning for possible primary lung malignancy, which patient is pre-exposed to due to her significant smoking history. The patient should also pursue treatment for tuberculosis as she does have hemoptysis, pulmonary nodule, fatigue and exposure to homeless people who often go to her yazidism though this is less likely less, the most likely diagnosis is her chronic bronchitis and this has been explained to the patient. The patient should follow up with her primary care provider within 1 week for general medical management. The patient should return to the hospital for alarming symptoms such as significant worsening or change in the character of her chest pain, significant deterioration in her pulmonary status or other alarming symptoms. The patient should have a heart healthy diet with caffeine okay. The patient should engage in activities as tolerated. TIME SPENT: Approximately 60 minutes were spent on this discharge, 30 of which were spent [id number] with the patient obtaining history and physical and discussing the treatment plan. NICHO MOSELEY [id number]/[facility] #: [id number] MONET
== END 2017-09-11 16:10 | disposition home or self-care (01) ==
LOC: ED 15:15 → MED 18:05
PROVIDERS: ADMIT Internal Medicine; ATTEND Internal Medicine
DX: J10.1 Influenza due to other identified influenza virus with other respiratory manifestations (principal); J44.1 Chronic obstructive pulmonary disease with (acute) exacerbation; R04.2 Hemoptysis; I10 Essential (primary) hypertension; E03.9 Hypothyroidism, unspecified; F32.9 Major depressive disorder, single episode, unspecified; F41.9 Anxiety disorder, unspecified; E78.5 Hyperlipidemia, unspecified; J45.909 Unspecified asthma, uncomplicated; Z87.891 Personal history of nicotine dependence; G43.909 Migraine, unspecified, not intractable, without status migrainosus; Z87.442 Personal history of urinary calculi; I20.9 Angina pectoris, unspecified; E87.6 Hypokalemia; Z79.899 Other long term (current) drug therapy; I44.7 Left bundle-branch block, unspecified
CPT/HCPCS: 36415; 71046; 80048; 80053; 81003; 82550; 82553; 83605; 83735; 83880; 84145; 84484; 85025; 85379; 85610; 86140; 87502; 87651; 93005; 94640; 96372; 96374; 96375; 99284; A9270-GY; G0378; J1644; J2175; J2405; J2930; J7512

== ENCOUNTER 2018-01-03 09:08 | Day surgery (SDC) | payer MEDICARE, BC ==
[~2018-01-03 09:08] MED LIST: Buffered Lidocaine 0.9% SYRIN* 5 ML/SYR SYRINGE INTRADERM ONE
[2018-01-03] MEDS ORDERED: Midazolam* 1 MG/ML 2 ML VIAL (2 MG) ONE (10:24)
[2018-01-03] MEDS ORDERED: fentaNYL* 50 MCG/ML 2 ML VIAL (100 MCG VIAL) ONE (10:43)
[2018-01-03 11:01] VITALS: BP 148/88
[2018-01-03] MEDS ORDERED: Phenylephrine 2.5% OPTH.SOL* 2 ML BTL ONE (11:51)
[2018-01-03] MEDS ORDERED: Tetracaine 0.5% OPTH.SOL 4 ML* 1 DROP BTL ONE (11:51)
[2018-01-03] MEDS ORDERED: Tropicamide 1% OPTH.SOL* BTL ONE (11:51)
[2018-01-03] MEDS ORDERED: Ketorolac 0.5% OPHTH (NF) 0.5 % 5 ML BTL ONE (11:51)
[2018-01-03] MEDS ORDERED: Lidocaine 1%* 5 ML VIAL ONE (11:51)
[2018-01-03] MEDS ORDERED: Neomycin/Polymy/Dex OPHTH.OIN* 3.5 GM ONE (11:51)
[2018-01-03] MEDS ORDERED: Cyclopentolate 1% OPTH.SOL* 2 ML BTL ONE (11:51)
--- NOTE | 2018-01-04 08:53 | OP ---
DATE OF OPERATION: 01/03/18 - [facility] DATE OF : 58 SURGEON: Ean Madison MD PRODUCT MANAGEMENT SPECIALIST: None. ANESTHESIA: Topical with intravenous sedation. PRE-OP DIAGNOSIS: Cataract with astigmatism, right eye. POST-OP DIAGNOSIS: Cataract with astigmatism, right eye. OPERATIVE PROCEDURE: Phacoemulsification cataract extraction with posterior chamber intraocular toric lens implant, right eye. COMPLICATIONS: None. ESTIMATED BLOOD LOSS: None. DESCRIPTION OF PROCEDURE: The patient was seen preoperatively in the holding area where she was placed in an upright position. A maryjane was made at the 6 o' clock position near the limbus of the right eye. The patient was subsequently brought to the operating room where she was given intravenous sedation. A drop of tetracaine was applied in her right eye. The patient was prepped and draped in the usual sterile fashion for ophthalmic surgery. Attention was directed to the right eye where a speculum was placed. A paracentesis was created at the 11 o'clock position and 0.1 cc of 1% preservative free lidocaine was injected in the anterior chamber followed by DisCoVisc. The eye was digitally stabilized while a 2.75 mm keratome was used to create a triplanar clear corneal incision at the 9 o'clock position. A continuous curvilinear capsulorrhexis was created with a cystotome and Utrata forceps. BSS on a cannula was used to hydrodissect the lens from the capsule. Phacoemulsification was performed in a [id number] technique to create 4 fragments which were removed. Residual cortical material was removed with irrigation and aspiration. Healon was used to inflate the capsular bag. A Casas intraoperative marker was used to maryjane the 85 degree axis. An [id number] diopter lens was folded and inserted into the capsular bag. It was dialed to the approximate axial alignment with a Sinskey hook. The Sinskey hook remained in the eye through the paracentesis to stabilize the lens while irrigation and aspiration were performed to remove viscoelastic from the eye. The Sinskey hook was removed. BSS on a cannula was used to hydrate the corneal stroma and seal the wound. At the end of the case, the pupil was round. Lens was centered stable in axial line. The eye pressure appeared normal and the wound was watertight. The speculum was removed. Topical Maxitrol ointment was placed on the surface of the eye. The eye was closed, patched, and shielded, and the patient was sent to recovery room in stable condition with postop instructions and follow-up appointment given. [id number]/[facility] #: [id number] MONET
== END 2018-01-03 11:07 | disposition home or self-care (01) ==
LOC: OREAST 09:08
PROVIDERS: ATTEND Ophthalmology
DX: H25.13 Age-related nuclear cataract, bilateral (principal); H52.203 Unspecified astigmatism, bilateral; R03.0 Elevated blood-pressure reading, without diagnosis of hypertension; E78.00 Pure hypercholesterolemia, unspecified; F17.210 Nicotine dependence, cigarettes, uncomplicated; R91.1 Solitary pulmonary nodule; Z88.5 Allergy status to narcotic agent
CPT/HCPCS: A9270-GY; J2250; J3010; V2787

== ENCOUNTER 2018-01-10 08:04 | Day surgery (SDC) | payer MEDICARE, BC ==
[~2018-01-10 08:04] MED LIST changes: +Acetaminophen TAB* 325 MG PO PRN
[2018-01-10] MEDS ORDERED: fentaNYL* 50 MCG/ML 2 ML VIAL (100 MCG VIAL) ONE (08:51)
[2018-01-10] MEDS ORDERED: Midazolam* 1 MG/ML 2 ML VIAL (2 MG) ONE (08:51)
[2018-01-10 09:45] VITALS: BP 126/63
[2018-01-10] MEDS ORDERED: Tetracaine 0.5% OPTH.SOL 4 ML* 1 DROP BTL ONE (14:01)
[2018-01-10] MEDS ORDERED: Tropicamide 1% OPTH.SOL* BTL ONE (14:01)
[2018-01-10] MEDS ORDERED: Cyclopentolate 1% OPTH.SOL* 2 ML BTL ONE (14:01)
[2018-01-10] MEDS ORDERED: Ketorolac 0.5% OPHTH (NF) 0.5 % 5 ML BTL ONE (14:01)
[2018-01-10] MEDS ORDERED: Neomycin/Polymy/Dex OPHTH.OIN* 3.5 GM ONE (14:01)
[2018-01-10] MEDS ORDERED: Lidocaine 1%* 5 ML VIAL ONE (14:01)
[2018-01-10] MEDS ORDERED: Phenylephrine 2.5% OPTH.SOL* 2 ML BTL ONE (14:01)
--- NOTE | 2018-01-11 05:10 | OP ---
DATE OF OPERATION: 01/10 - MERGED WITH [facility] DATE OF : 58 SURGEON: Ean Madison MD LINUX SERVER ENGINEER: None. ANESTHESIA: Topical with intravenous sedation. PRE-OP DIAGNOSIS: Cataract with astigmatism, left eye. POST-OP DIAGNOSIS: Cataract with astigmatism, left eye. OPERATIVE PROCEDURE: Phacoemulsification and cataract extraction with posterior chamber toric intraocular lens implant left eye. COMPLICATIONS: None. ESTIMATED BLOOD LOSS: None. DESCRIPTION OF PROCEDURE: The patient was seen preoperatively in the holding area where she was placed in upright position. A maryjane was made at the 6 o' clock position of the limbus of the left eye. The patient was subsequently brought to the operating room and received small amount of intravenous sedation and a drop of tetracaine to her left eye. She was prepped and draped in the usual sterile fashion for ophthalmic surgery and attention was directed to the left eye where a speculum was placed. A paracentesis was created at the 5 o' clock position and 0.1 cc of 1% preservative-free lidocaine was injected into the anterior chamber followed by DisCoVisc. The eye was digitally stabilized while a 2.75 mm keratome was used to create a triplanar clear corneal incision at the 3 o'clock position. A continuous curvilinear capsulorrhexis was created with a cystotome and Utrata forceps. BSS on a cannula was used to hydrodissect the lens from the capsule. Phacoemulsification was performed in a divide-and- conquer technique to create 4 fragments which were removed. Residual cortical material was removed with irrigation and aspiration. Healon was used to inflate the capsular bag. A Casas marker was used to maryjane the 93 degree axis on the limbus. An [id number] Diopter lens was folded and inserted into the capsular bag. A Sinskey hook was used to rotate the lens to the proper axial alignment. The Sinskey hook remained to the eye through the paracentesis to stabilize the lens while irrigation and aspiration were performed to remove viscoelastic from the eye. The Sinskey hook was removed. BSS in a cannula was used to hydrate the cornea and seal the wound. At the end of the case, the pupil was round. The lens was centered, stable and axially aligned. The eye pressure appeared normal and the wound was water tight. The speculum was removed and topical Maxitrol ointment was placed on the surface of the eye. The eye was closed, patched, and shielded, and the patient was sent to recovery room in stable condition with postop instructions and followup appointment given. [id number]/[facility] #: [id number] MONET
== END 2018-01-10 09:47 | disposition home or self-care (01) ==
LOC: OREAST 08:04
PROVIDERS: ATTEND Ophthalmology
DX: H25.12 Age-related nuclear cataract, left eye (principal); H52.202 Unspecified astigmatism, left eye; I10 Essential (primary) hypertension; I44.7 Left bundle-branch block, unspecified; J44.9 Chronic obstructive pulmonary disease, unspecified; G47.33 Obstructive sleep apnea (adult) (pediatric); E03.9 Hypothyroidism, unspecified; M79.7 Fibromyalgia; F41.9 Anxiety disorder, unspecified
CPT/HCPCS: A9270-GY; J2250; J3010; V2787

== ENCOUNTER 2019-04-02 15:48 | Observation (INO) | payer MEDICARE, BC ==
[2019-04-02] MEDS ORDERED: NS 0.9% 1000 ML** 1,000 ML IV ONE (16:21)
[2019-04-02] MEDS ORDERED: Ondansetron INJ* 2 MG/ML VIAL IV ONE (16:21)
--- NOTE | 2019-04-02 16:23 | ED ---
Abdominal Pain/Female - HPI Summary HPI Summary: Pt is a 59 y/o F presenting to the ED with a chief complaint of L-sided flank pain initially onset yesterday afternoon, gradually increasing in severity. She reports radiation to her lower abd/groin with associated diaphoresis, shaking, chills, and nausea. Pt denies any fever, erythema of eyes, sore throat, CP, SOB , cough, vomiting, dysuria, hematuria, myalgia, edema, rash, or dizziness. She has significant PMHx of kidney stones. - History of Current Complaint Chief Complaint: EDFlankPain Stated Complaint: ABD PAIN PER PT Time Seen by Provider: 04/02/19 16:01 Hx Obtained From: Patient Onset/Duration: Gradual Onset, Lasting Days, Still Present Timing: Days Severity Initially: Moderate Severity Currently: Severe Pain Intensity: 10 Pain Scale Used: 0-10 Numeric Location: Flank Radiates: Yes Radiates to: LLQ, RLQ Aggravating Factor(s): Nothing Alleviating Factor(s): Nothing Associated Signs and Symptoms: Positive: Nausea. Negative: Fever, Cough, Chest Pain, Dizzy, Urinary Symptoms, Vomiting Allergies/Adverse Reactions: Allergies Allergy/AdvReac Type Severity Reaction Status Date / Time latex Allergy ITCHY Verified 04/02/19 15:54 morphine Allergy Itching Verified 04/02/19 15:54 PMH/Surg Hx/FS Hx/Imm Hx Previously Healthy: Yes Endocrine/Hematology History: Reports: Hx Thyroid Disease - HYPOTHYROIDISM Denies: Hx Diabetes Cardiovascular History: Reports: Hx Angina, Hx Hypercholesterolemia, Hx Hypertension - ON MEDICATION FOR, Other Cardiovascular Problems/Disorders - LEFT BUNDLE BRANCH BLOCK Denies: Hx Coronary Artery Disease, Hx Myocardial Infarction, Hx Pacemaker/ ICD, Hx Valvular Heart Disease Respiratory History: Reports: Hx Asthma, Hx Chronic Obstructive Pulmonary Disease (COPD), Hx Sleep Apnea GI History: Reports: Hx Hiatal Hernia, Hx Irritable Bowel, Other GI Disorders - RETROPERTINEAL HERNIA History: Reports: Hx Kidney Stones - HX OF HOSPITALIZED X 4 IN THE PAST 6MO FOR THIS Musculoskeletal History: Reports: Hx Orthopedic Injury - FX RIGHT FOOT , Hx Tendonitis - ELBOWS, Other Musculoskeletal History - DDD Sensory History: Reports: Hx Cataracts - BILATERAL, Hx Contacts or Glasses - GLASSES Denies: Hx Hearing Aid Opthamlomology History: Reports: Hx Cataracts - BILATERAL, Hx Contacts or Glasses - GLASSES Neurological History: Reports: Hx Migraine - TREATS WITH BUTALBITAL, Other Neuro Impairments/Disorders - FIBROMYALGIA Psychiatric History: Reports: Hx Anxiety - PRN MEDICATION FOR, Hx Depression Denies: Hx Panic Disorder - Cancer History Hx Chemotherapy: No Hx Radiation Therapy: No - Surgical History Surgery Procedure, Year, and Place: 6 OVARIAN SURGERYS (TUBAL SX & REVERSAL) AT [facility] [place] [facility] [place]. CARDIAC CATH 2001 @ [facility] [place] NUMEROUS KIDNEY SURGERIES FOR STONES Hx Anesthesia Reactions: No - Immunization History Date of Tetanus Vaccine: UTD Date of Influenza Vaccine: UTD Infectious Disease History: Yes Infectious Disease History: Denies: Hx Clostridium Difficile, Hx Hepatitis, Hx Human Immunodeficiency Virus (HIV), Hx of Known/Suspected MRSA, Hx Shingles, Hx Tuberculosis, Hx Known/ Suspected VRE, Hx Known/Suspected VRSA, History Other Infectious Disease, Traveled Outside the [place] in Last 30 Days - Family History Known Family History: Positive: Cardiac Disease - Father with WI at 50, Other - Breast CA - Social History Alcohol Use: Occasionally Hx Substance Use: No Substance Use Type: Reports: None Hx Tobacco Use: Yes Smoking Status (MU): Former Smoker Amount Used/How Often: 1-1.5 PPD X 25 YEARS Review of Systems Positive: Chills, Skin Diaphoresis, Other - shaking. Negative: Fever Negative: Erythema Negative: Sore Throat Negative: Chest Pain Negative: Shortness Of Breath, Cough Positive: Abdominal Pain, Nausea. Negative: Vomiting Negative: dysuria, hematuria Negative: Myalgia, Edema Negative: Rash Neurological: Negative - dizziness All Other Systems Reviewed And Are Negative: Yes Physical Exam - Summary Physical Exam Summary: Constitutional: Well-developed, Well-nourished, Alert. Tearful Skin: Warm, diaphoretic HENT: Normocephalic; Atraumatic Eyes: Conjunctiva normal Neck: Musculoskeletal ROM normal neck. (-) JVD, (-) Stridor, (-) Tracheal deviation Cardio: Rhythm regular, rate normal, Heart sounds normal; Intact distal pulses; The pedal pulses are 2+ and symmetric. Radial pulses are 2+ and symmetric. (-) Murmur Pulmonary/Chest wall: Effort normal. (-) Respiratory distress, (-) Wheezes, (-) Rales Abd: Soft, bilateral lower abdomen tenderness (-) Distension, (-) Guarding, (-) Rebound Musculoskeletal: (-) Edema, bilateral CVA tenderness Lymph: (-) Cervical adenopathy Neuro: Alert, Oriented x3 Psych: Mood and affect Normal Triage Information Reviewed: Yes Vital Signs On Initial Exam: Initial Vitals Temp Pulse Resp BP Pulse Ox 97.3 F 75 20 178/141 95 04/02/19 15:51 04/02/19 15:51 04/02/19 15:51 04/02/19 15:51 04/02/19 15:51 Vital Signs Reviewed: Yes Diagnostics - Vital Signs Vital Signs Temp Pulse Resp BP Pulse Ox 04/02/19 15:51 97.3 F 75 20 178/141 95 - Laboratory Result Diagrams: 04/02/19 16:22 04/02/19 16:22 Lab Statement: Any lab studies that have been ordered have been reviewed, and results considered in the medical decision making process. - CT CT a/p CT Interpretation Completed By: Radiologist Summary of CT Findings: No evidence of obstructive uropathy is noted. No other masses or fluid collections are noted. ED physician has reviewed this report. Re-Evaluation - Re-Evaluation 1st re-eval Re-Evaluation Time: 17:28 Change: Improved Comment: The pt states her pain has slightly improved. She believes it is her ovaries rather than a kidney stone. Abdominal Pain Fem Course/Dx - Course Course Of Treatment: Pt is a 59 y/o F presenting to the ED with a chief complaint of L-sided flank pain initially onset yesterday afternoon, gradually increasing in severity. She reports radiation to her lower abd/groin with associated diaphoresis, shaking, chills, and nausea. Pt denies any fever, erythema of eyes, sore throat, CP, SOB, cough, vomiting, dysuria, hematuria, myalgia, edema, rash, or dizziness. She has significant PMHx of kidney stones. On exam, pt is tearful, diaphoretic, and has bilateral CVA tenderness and bilateral lower abdominal tenderness. CT a/p shows: No evidence of obstructive uropathy is noted. No other masses or fluid collections are noted. Pt's lactic acid is 2.4. As of 1727, the pt states her pain has slightly improved. She believes it is her ovaries rather than a kidney stone. Pt will be signed out to Dr. Jacobs at 1900 pending transvaginal US. - Diagnoses Provider Diagnoses: Flank pain Discharge ED - Sign-Out/Discharge Documenting (check all that apply): Sign-Out Patient Signing out patient TO: Larry Jacobs - Discharge Plan Condition: Stable Referrals: Camille Abbott MD [Primary Care Provider] - - Attestation Statements Document Initiated by Scribe: Yes Documenting Scribe: Stephanie Coffey Provider For Whom Scribe is Documenting (Include Credential): Ramy Blas MD. Scribe Attestation: Stephanie Collins, scribed for Ramy Blas MD. on 04/02/19 at 1855. Status of Scribe Document: Ready
[2019-04-02 16:33] LABS: ABS Basophils 0.1 10^3/ul (0-0.2); ABS Eosinophils 0.1 10^3/ul (0-0.6); ABS Lymphocytes 3.6 10^3/ul (1.0-4.8); ABS Monocytes 0.5 10^3/ul (0-0.8); ABS Neutrophils 4.7 10^3/ul (1.5-7.7); Eosinophil % 1.4 %; Hematocrit 43 % (35-47); Hemoglobin 14.9 g/dL (12.0-16.0); Lymphocyte % 39.9 %; Mean Corpuscular HGB Conc 35 g/dL (31-36); Mean Corpuscular Hemoglobin 30 pg (27-31); Mean Corpuscular Volume 87 fL (80-97); Mean Platelet Volume 7.8 fL (7.4-10.4); Nucleated Red Blood Cells % 0.1; Platelet Count 276 10^3/uL (150-450); Red Blood Count 4.94 10^6 /uL (3.70-4.87); Red Cell Distribution Width 13 % (10-15); White Blood Count 9.1 10^3/uL (3.5-10.8)
--- OUTSIDE RECORDS SUMMARY | 2019-04-02 16:52 | XMS REPORT | Continuity of Care Document ---
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 Medicine Problems Active Problems Provider Date Hemoptysis Eden Aponte MD Onset: 12/10/2014 Simple chronic bronchitis Eden Aponte MD Onset: 12/10/2014 Pulmonary emphysema Eden Aponte MD Onset: 12/10/2014 Obesity Eden Aponte MD Onset: 02/10/2015 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/2015 Obstructive sleep apnea syndrome Orquidea Monahan DNP, RN, RESIDENT MANAGER-BC Onset: 12/2014 Tonsillitis Orquidea Monahan DNP, RN, RESIDENT MANAGER-BC Onset: 05/23/2015 Social History Type Date Description Comments Sex Unknown ETOH Use uses a shot of cole to help with the phlgem Tobacco Use Start: Unknown End: Patient is a former smoker Recreational Drug Use Denies Drug Use Smoking Status Reviewed: 03/26/19 Patient is a former smoker Exercise Type/Frequency Exercises sporadically Allergies, Adverse Reactions, Alerts Active Allergies Reaction Severity Comments Date Latex Itching Mild 12/15/2017 Morphine Patient was given morphine in Mild 12/15/2017 Inactive Allergies NKDA 04/16/2013 Medications Active Medications SIG Qnty Indications Ordering Date Provider Dream Wear Nasal Pls provide pt G47.33 Eden Aponte, 04/21/2018 Mask with dream wear nasal interface Spiriva Respimat take 2 puffs every 12units J43.9 Eden Aponte, 2016 day 2.5mcg/Act Aerosol Proair HFA 2 puffs every 4-6 25.5gm Eden Aponte, 09/22/2015 hours as needed 108(90Base) mcg/Act Aerosol Advair HFA Inhale Two Puffs 36units Eden Aponte, 09/22/2015 By Mouth Twice A MD 115-21mcg/Act Day Aerosol Flutter use as instructed 1un Eden Aponte, 07/31/2015 Device twice a day MD Espinoza Thyroid 1 by mouth every Unknown 05/22/2015 60mg day Tablets Motrin Ib as needed Unknown 05/22/2015 800mg Tablets Butalbital/Acetamino 1-2 by mouth as Unknown 05/22/2015 phen/Caffeine needed every 4-6 hours for headache 50-325-40mg Capsules Nuvigil 1 tab by mouth Unknown 250mg Tablet once a day Trazodone HCL 2 tab by mouth Unknown 50 once a day Tablet Atenolol 1 tab by mouth Unknown 50mg Tablet once a day Estradiol 1 tablet by mouth Unknown 1mg Tablet once a day Duloxetine HCL Take Two Capsules Unknown 60mg By Mouth Daily Caps DR Part Polyethylene Glycol 1x day at bedtime Unknown 3350 with liquid Ondansetron dissolve one Unknown tablet orally as needed for nausea. Viibryd Take 1/2 Tablet Unknown 20mg Tablets Daily For One Week, Then Increase To 1 Tablet Daily Immunizations Description No Information Available Vital Signs Date Vital Result Comment 03/26/2019 12:44pm Height 62.5 inches 5'2.50" Weight 164.00 lb Heart Rate 64 /min BP Systolic Sitting 116 mmHg Lue regular cuff BP Diastolic Sitting 76 mmHg Lue regular cuff Respiratory Rate 12 /min O2 % BldC Oximetry 97 % BMI (Body Mass Index) 29.5 kg/m2 01/22/2019 1:40pm Height 62.5 inches 5'2.50" Weight 163.12 lb Heart Rate 66 /min BP Systolic Sitting 114 mmHg Rue reg cuff BP Diastolic Sitting 74 mmHg Rue reg cuff Respiratory Rate 18 /min O2 % BldC Oximetry 96 % On Ra BMI (Body Mass Index) 29.4 kg/m2 Results Description No Information Available Procedures Description No Information Available Medical Devices Description No Information Available Encounters Type Date Location Provider Dx Diagnosis Office Visit 03/26/2019 [facility] G47.33 Obstructive sleep 1:00p [facility] ap[facility] (adult) [facility] (pediatric) J44.9 Chronic obstructive pulmonary disease, unspecified R53.83 Other fatigue Office Visit 01/22/2019 1:45p [facility] J44.9 [facility] obstructive Rack Washer pulmonary disease, unspecified G47.33 Obstructive sleep apnea (adult) (pediatric) Assessments Date Code Description Provider 03/26/2019 G47.33 Obstructive sleep apnea (adult) (pediatric) Gifty Grajeda NP 03/26/2019 J44.9 Chronic obstructive pulmonary disease, Gifty Grajeda NP unspecified 03/26/2019 R53.83 Other fatigue Gifty Grajeda NP 01/22/2019 J44.Araceli Chronic obstructive pulmonary disease, Eden Aponte MD unspecified 01/22/2019 G47.33 Obstructive sleep apnea (adult) (pediatric) Eden Aponte MD Plan of Treatment Future Appointment(s):06/26/2019 10:30 am - Gifty Grajeda NP at [facility]03/26/2019 - Gifty Grajeda NPG47.33 Obstructive sleep apnea (adult) (pediatric)Follow up:3 monthsRecommendations:I will request the AirTouch mask from your [employer] company since you seem to have liked that betterthan your current mask. If you continue to have issues with mask leak on your side, you should consider getting a CPAP pillow that has a cutout for your mask. If you have difficulty with your equipment, or need to replace your mask or hoses, please contact your homecare agency, [facility] . If you have any further questions, please call the [facility] at [phone] If you have any sleepiness while driving you MUST avoid operating a vehicle or machinery. 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 If you know you are sleepy and need to go somewhere, arrange for a ride or use public transportation. It is very important tonot risk your safety or the safety of others.J44.9 Chronic obstructive pulmonary disease, [id number] Other fatigueRecommendations:Please work on going to sleep earlier so you are able to get more sleep each night. Most people feelbest when they are able to get 7-8 hours of sleep per night. Functional Status Description No Information Available Mental Status Description No Information Available Referrals Description No Information Available
[2019-04-02 17:01] LABS: Albumin 4.4 g/dL (3.2-5.2); Albumin/Globulin Ratio 1.5 (1-3); BUN/Creatinine Ratio 18.3 (8-20); C Reactive Protein 2.69 mg/L (<8.01); Calcium 9.2 mg/dL (8.6-10.3); EGFR African American 101.6 (>60); Potassium 3.7 mmol/L (3.5-5.0); Total Bilirubin 0.3 mg/dL (0.2-1.0); Total Protein 7.4 g/dL (6.4-8.9)
[2019-04-02] MEDS ORDERED: HYDROmorphone INJ* 0.5 MG/0.5 ML SYRINGE IV SLOW PU ONE (17:30)
[2019-04-02 18:20] LABS: Urine Appearance Cloudy; Urine Bacteria 1+ (Absent); Urine Bilirubin Negative (Negative); Urine Blood 1+ (Negative); Urine Color Yellow; Urine Glucose Negative (Negative); Urine Ketones Negative (Negative); Urine Nitrite Negative (Negative); Urine Protein Negative (Negative); Urine Red Blood Cell 1+(3-5/hpf) (Absent); Urine Specific Gravity 1.011 (1.010-1.030); Urine Squamous Epithelial Cell Present (Absent); Urine Urobilinogen Negative (Negative); Urine White Blood Cell Trace(0-5/hpf) (Absent)
[2019-04-02] MEDS ORDERED: HYDROmorphone TAB* 2 MG PO ONE (19:58)
--- NOTE | 2019-04-02 20:26 | ED ---
Progress - Progress Note Progress Note: Patient is received as a sign out from Dr. Blas to Dr. Jacobs at 1900 04/02/19 shift change pending results of Transvaginal US. TRANSVAGINAL US IMPRESSION: Neither ovary is visualized. Uncertain if these are surgically absent. No documented adnexal mass. THIS REPORT WAS REVIEWED BY DR. JACOBS. 2228 - Patient's pain has persisted. She had been given Dilaudid 2 mg without relief in Sx. Admission was discussed, patient is agreeable with this. 2230 - Patient's case was discussed with Dr. Sahu, Dr. Sahu accepts for admission. Re-Evaluation - Re-Evaluation 1st re-eval Re-Evaluation Time: 22:29 Change: Unchanged Comment: 2228 - Patient's pain has persisted. She had been given Dilaudid 2 mg without relief in Sx. Admission was discussed, patient is agreeable with this. Course/Dx - Course Course Of Treatment: Patient is received as a sign out from Dr. Blas to Dr. Jacobs at 1900 04/02/19 shift change pending results of Transvaginal US. TRANSVAGINAL US IMPRESSION: Neither ovary is visualized. Uncertain if these are surgically absent. No. documented adnexal mass. THIS REPORT WAS REVIEWED BY DR. JACOBS. 2228 - Patient's pain has persisted. She had been given Dilaudid 2 mg without relief in Sx. Admission was discussed, patient is agreeable with this. 2230 - Patient's case was discussed with Dr. Sahu, Dr. Sahu accepts for admission. - Diagnoses Provider Diagnoses: Abdominal pain - Provider Notifications Discussed Care Of Patient With: Oswald Sahu Time Discussed With Above Provider: 22:31 Instructed by Provider To: Other - 223 - Patient's case was discussed with Dr. Sahu, Dr. Sahu accepts for admission. Discharge ED - Sign-Out/Discharge Documenting (check all that apply): Patient Departure - admit Patient Received Moderate/Deep Sedation with Procedure: No - Discharge Plan Condition: Stable Disposition: ADMITTED TO [facility] - Billing Disposition and Condition Condition: STABLE Disposition: Admitted to [facility] - Attestation Statements Document Initiated by Scribe: Yes Documenting Scribe: KEITH FUENTES Provider For Whom Scribe is Documenting (Include Credential): JEFERSON JACOBS MD Scribe Attestation: I, KEITH FUENTES, scribed for JEFERSON JACOBS MD on 04/07/19 at 0546. Scribe Documentation Reviewed: Yes Provider Attestation: The documentation as recorded by the scribeKEITH accurately reflects the service I personally performed and the decisions made by me, JEFERSON JACOBS MD Status of Scribe Document: Viewed
[2019-04-03] MEDS ORDERED: Ondansetron INJ* 2 MG/ML VIAL IV PRN (00:06)
[2019-04-03] MEDS ORDERED: NS 0.9% 1000 ML** 1,000 ML IV SCH (00:15)
[2019-04-03] MEDS ORDERED: Albuterol/Ipratropium NEB.SOL* Albuterol 2.5 MG/Ipratropium 0.5 MG 3 ML INH PRN ×2 (00:30→16:17)
[2019-04-03] MEDS: HYDROmorphone INJ1* 1 MG/ML SYRINGE IV SLOW PU PRN ×2 (00:33→07:33)
[2019-04-03] MEDS: diPHENhydraMINE PO* 50 MG PO PRN ×2 (02:29→11:35)
--- NOTE | 2019-04-03 02:37 | HP ---
CC: Dr. Camille Abbott * ADMISSION HISTORY AND PHYSICAL: DATE OF ADMISSION: 04/03/19 CHIEF COMPLAINT: Bilateral flank pain. HISTORY OF PRESENT ILLNESS: This is a 59-year-old female with past medical history of COPD/asthma, hypertension, migraine, anxiety, depression, dyslipidemia, and previous history of renal stones and pyelonephritis here due to bilateral flank pain. The patient stated that she was in her usual state of health up until Tuesday, when she started having worsening pain in her bilateral flanks, mostly on the right side radiating to her groin. She thought that the pain was similar to her previous episodes of kidney stones and finally decided to come back to the ER on Tuesday for worsening pain. Pain was 10/10 intensity, worse with the bump on the road while she was driving on her way here to the hospital. The patient also stated that her pain was accompanied with 1 episode of vomiting on Tuesday and has decreased appetite for the last few days. She has been having some chills, shakes, and sweating, but no obvious fever, but she did feel clammy. She also stated that her urine looked bloody over the last 2 days, but it has cleared up after she received some IV fluids in the ER. There is no burning sensation or pain with urination. No other sick contacts. She states that she is currently living by herself as her went to [place]. PAST MEDICAL HISTORY: 1. Hypertension. 2. Hypothyroidism. 3. Asthma. 4. COPD. 5. Migraines. 6. Anxiety. 7. Depression. 8. Dyslipidemia. 9. Fibromyalgia. 10. Kidney stones. 11. Pyelonephritis. 12. She also has hot flashes, for which she takes some estradiol. 13. Left bundle-branch block, which was diagnosed. PAST SURGICAL HISTORY: She has had hysterectomy with oophorectomy, but she stated that a little bit of her ovaries might have been left behind on each side. She has had ureteral stenting for her kidney stones and tubal ligation with reversal. She has also had cardiac cath, which was accomplished in 2004 without any stenting; this cardiac cath was complicated with some intraabdominal bleeding, and she has had bilateral cataract surgery. HOME MEDICATIONS: The patient is unable to recollect. She states that she is on medications for the aforementioned symptoms including hypertension and cholesterol and low thyroid, but her daughter will be able to bring the list tomorrow morning. ALLERGIES: The patient is allergic to LATEX, which causes itching and MORPHINE , which also causes itching. FAMILY HISTORY: Father of an LA in her 50s. Mother had congestive heart failure and diabetes. SOCIAL HISTORY: The patient has a [id number] history of smoking, quit in 1999. Occasional alcohol use. Denies any illicit drug use. 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 Currently lives with her , who is out of town to [place] to help his sister. She also has 2 daughters. Both of them are in town; one of them lives next door. The patient does state that she is do not resuscitate and her and her daughters are her healthcare proxies. REVIEW OF SYSTEMS: A 14-point review of systems did not reveal any new information, other than what is stated in the HPI. PHYSICAL EXAMINATION GENERAL: In general, the patient is awake, alert, oriented x3, did not appear to be in any acute distress. VITAL SIGNS: BP was noted to be 138/74, heart rate of 62, respiration rate 17, saturating 98% on room air, temperature was documented at 97.9. HEAD AND NECK: Atraumatic, normocephalic. Bilateral pupils are reactive. Oral mucosa was moist. NECK: Supple. No jugular venous distention. ABDOMEN: Soft, nontender, and nondistended. EXTREMITIES: No cyanosis, clubbing, or edema. DIAGNOSTIC STUDIES/LAB DATA: Labs: CBC was unremarkable. Comprehensive metabolic panel was unremarkable, except for elevated lactic acid, which improved to 0.9 after IV fluid hydration. Urinalysis was cloudy with 1+ blood and trace wbc's, but negative for any leuk esterase or nitrites. CT abdomen and pelvis without contrast was read as no evidence of obstructive uropathy. No other masses or fluid collection noted. Transvaginal ultrasound showed neither ovary is visualized, uncertain if these are surgical absent. No documented adnexal mass. No free fluid was noted. IMPRESSION: This is a 59-year-old female with multiple medical problems including fibromyalgia here due to bilateral flank pain. No changes on the CAT scan with intractable pain, which did not improve with multiple doses of Dilaudid in the ER. So, the patient is being admitted for pain control. ASSESSMENT AND PLAN: 1. Bilateral flank pain, unclear etiology. We will consider repeating a CAT scan of her abdomen and pelvis, but with contrast in the morning after hydrating the patient. There is a possibility that this is just secondary to her fibromyalgia, although the patient is stating that the pain is not similar to fibromyalgia, but rather her kidney stone pain. It is also possible that the patient already had a past kidney stone given that she did have some hematuria, which was microscopic at this point. 2. Lactic acidosis, likely secondary to dehydration from decreased appetite. 3. History of hypertension. We will confirm her home blood pressure medication and restart home medication. 4. History of dyslipidemia. We will restart her simvastatin once the dose is confirmed. 5. History of depression. Restart home medication once doses and medications are confirmed. 6. History of fibromyalgia. 7. History of chronic obstructive pulmonary disease and asthma. We will start p.r.n. nebulization for now and then restart home medication once this is confirmed. 8. History of hypothyroidism. Restart home thyroid medication once confirmed dose by the daughter in the morning. 9. History of anxiety. 10. DVT prophylaxis with sequential compression device. [id number]/[facility] #: [id number] [facility]
--- NOTE | 2019-04-03 08:31 | PN ---
Subjective Date of Service: 04/03/19 Interval History: HD1 on 04/03 59 y/o F with h/o nephrolithiasis and pyleopnephritis presented with acute onset of b/l flank pain associated with nausea, vomiting, chills and bloody urine. VSS No abd pain at present. has headache(8/10) with nausea; she usually haves migraine headache no aura has itching patietn doesnot have any complain except for headache. Giving her pain med. If subsides by evening probable d/c Objective Active Medications: Albuterol/Ipratropium (Duoneb (Albuterol 2.5 Mg/Ipratropium 0.5 Mg)) 1 neb INH Q6H PRN PRN Reason: SOB/WHEEZING Diphenhydramine HCl (Benadryl Po*) 50 mg PO Q6H PRN PRN Reason: ITCHING Last Admin: 04/03/19 02:29 Dose: 50 mg Hydromorphone HCl (Dilaudid Inj1s*) 1 mg IV SLOW PU Q6H PRN PRN Reason: PAIN - SEVERE Last Admin: 04/03/19 07:33 Dose: 1 mg Sodium Chloride (Ns 0.9% 1000 Ml) 1,000 mls @ 75 mls/hr IV PER RATE PETE Last Admin: 04/03/19 00:32 Dose: 75 mls/hr Ondansetron HCl (Zofran Inj*) 4 mg IV Q6H PRN PRN Reason: NAUSEA Last Admin: 04/03/19 00:33 Dose: 4 mg Vital Signs - 8 hr 04/03/19 04/03/19 04/03/19 00:33 00:57 01:00 Temperature 0 F 97.8 F Pulse Rate 0 54 Respiratory 17 0 16 Rate Blood Pressure 0/0 117/72 (mmHg) O2 Sat by Pulse 0 98 Oximetry 04/03/19 04/03/19 04/03/19 02:10 02:29 02:42 Temperature 97.8 F Pulse Rate 54 Respiratory 16 16 16 Rate Blood Pressure 117/72 (mmHg) O2 Sat by Pulse 98 Oximetry 04/03/19 04/03/19 04/03/19 03:45 04:37 07:33 Temperature 97.5 F Pulse Rate 61 Respiratory 19 16 18 Rate Blood Pressure 133/80 (mmHg) O2 Sat by Pulse 98 Oximetry Oxygen Devices in Use Now: None Exam: Patient is lying on abed with no any acute distress HEENT: Normocephalic and atraumatic LUngs: clear Heart: S1/S2 heard with no murmur Abdomen: soft, nontender and nondistended. No CVA tenderness noted. Extremities:no swelling or clubbing Neuro: Alert and oriented; MOving all four extremities Result Diagrams: 04/02/19 16:22 04/02/19 16:22 Assess/Plan/Problems-Billing Assessment: 59 y/o F with h/o nephrolithiasis and pyleopnephritis, COPD, Asthma, HTN, Migraine, Fibromyalgia, anxiety presented with acute onset of b/l flank pain associated with nausea, vomiting, chills and bloody urine. CT abd/pelv and TVS unrevealing. urine shows microscopic hematuria. - Patient Problems (1) Flank pain Current Visit: Yes Status: Acute Code(s): R10.9 - UNSPECIFIED ABDOMINAL PAIN SNOMED Code(s): 372554906 Comment: Had severe flank pain with radiation to steven and episodes of dark urine CT negative for stones pain resolved by now. no abd pain, nausea or vomitng at present. No fever, chiils, burning micturition and cva tenderness. Likely passed stone Has h/o recurrent stone in the past (2) Migraine Current Visit: Yes Status: Acute Code(s): G43.909 - MIGRAINE, UNSP, NOT INTRACTABLE, WITHOUT STATUS MIGRAINOSUS SNOMED Code(s): 38385338 Comment: Has h/o migraine has headache which is 8 out of 10.; she states her this as her regular episode of headache giving iv ketorolac prn; pain well controlled (3) Lactic acidosis Current Visit: Yes Status: Acute Code(s): E87.2 - ACIDOSIS SNOMED Code(s) : 47129837 Comment: probably due to dehydration; didnot met sepsis criteria resolved (4) DVT prophylaxis Current Visit: Yes Status: Acute Code(s): Z29.9 - ENCOUNTER FOR PROPHYLACTIC MEASURES, UNSPECIFIED SNOMED Code(s): 667674936 Comment: scd (5) Full code status Current Visit: Yes Status: Acute Code(s): Z78.9 - OTHER SPECIFIED HEALTH STATUS SNOMED Code(s): 559379663 Status and Disposition: Observation; can be d/c Attending: Janice Thibodeaux Attestation Documenting Resident: Marcelo Rich Supervising Physician: Morelia Camacho Attestation: This service has been performed in part by a resident under the direction of a teaching physician.I, Morelia Camacho, performed the service, or was physically present during the critical, or hinton portions of the service, furnished by the resident. I participated in the management of the patient.
[2019-04-03] MEDS ORDERED: Acetaminophen TAB* 325 MG PO PRN (09:42)
[2019-04-03] MEDS ORDERED: Ketorolac INJ* 15 MG/ML 1 ML VIAL IV PUSH ONE (13:55)
[2019-04-03] MEDS ORDERED: Ondansetron ODT TAB* 4 MG PO PRN (16:17)
[2019-04-03] MEDS ORDERED: Polyethylene Glycol 3350* 17 GM PACKET PO PRN (16:17)
[2019-04-03] MEDS ORDERED: Ibuprofen TAB* 800 MG PO PRN (16:17)
[2019-04-03] MEDS ORDERED: LORazepam TAB(*) 0.5 MG PO PRN (16:17)
[2019-04-03 16:23] VITALS: BP 147/80
[2019-04-03] MEDS ORDERED: Ketorolac INJ* 30 MG/ML 1 ML VIAL IV PUSH PRN (16:40)
[2019-04-03] MEDS ORDERED: DULoxetine DR CAP* 60 MG CAP.DR PO SCH (18:00)
[2019-04-03] MEDS ORDERED: Atenolol TAB* 50 MG PO SCH (18:00)
[2019-04-03] MEDS ORDERED: CMCS: Estradiol TAB(NF) 1 MG TAB PO SCH (18:00)
[2019-04-03] MEDS ORDERED: SPIRIVA Respimat* (tiotropium) 2.5 mcg/inh Inhaler INH SCH (18:00)
[2019-04-03] MEDS ORDERED: Mometasone/Formoter 200/5 MDI INH SCH (21:00)
[2019-04-03] MEDS ORDERED: traZODone TAB* 100 MG PO SCH (21:00)
[2019-04-03] MEDS ORDERED: Fluticas/Salmet 115/21 HFA(NF) MDI INH SCH (21:00)
--- NOTE | 2019-04-03 23:09 | DS ---
CC: Dr. Camille Abbott * DISCHARGE SUMMARY: DATE OF ADMISSION: 04/02/19 DATE OF DISCHARGE: 04/03/19 PRIMARY CARE PHYSICIAN: Dr. Camille Abbott. PRIMARY DIAGNOSIS: Flank pain of unknown etiology, possibly passed kidney stone. SECONDARY DIAGNOSES: 1. Chronic migraine. 2. Hypertension. 3. Hypothyroid. 4. Chronic obstructive pulmonary disease. 5. Anxiety, depression. 6. Fibromyalgia. DISCHARGE MEDICATIONS: 1. Hydrochlorothiazide 12.5 mg daily. 2. Rosuvastatin 20 mg daily. 3. Atenolol 50 mg daily. 4. Armodafinil 250 mg daily. 5. Symbicort 2 puffs twice a day. 6. DuoNeb every 4 hours as needed for shortness of breath. 7. Duloxetine 60 mg nightly. 8. Lorazepam 0.5 every 8 hours as needed for anxiety. 9. Ibuprofen 800 mg twice a day as needed for headache. 10. Advair 2 puffs twice a day. 11. Spiriva 2 puffs. 12. Thyroid tab 60 mg daily. 13. Ondansetron every 4 hours as needed for nausea. 14. Trazodone 100 mg at bedtime. HISTORY OF PRESENT ILLNESS: Ms. Castillo is a 59-year-old woman with COPD, asthma, chronic migraines, hypertension, fibromyalgia, anxiety and depression, previous history of renal stones and pyelonephritis, is here due to bilateral flank pain. She states that she was in her usual state of health up until 2 days prior to presentation when she started having worsening pain in her bilateral flanks mostly on the right side radiating to her groin. She thought that the pain was similar to her previous episodes of kidney stones and finally decided to come back to the ER for worsening pain, which was 10/10 in intensity. It was worse with a bump on the road while she was traveling her way to the hospital. She states that her pain was accompanied with 1 episode of vomiting on the day of presentation and she has also had decreased appetite, chills, shakes and sweating, but no obvious fever. She thinks her urine looked bloody over last 2 days but cleared up after she received IV fluids in the ER. She denies burning sensation when urinating. No sick contacts. HOSPITAL COURSE: In the ER, the patient did not have leukocytosis or fever. Her urinalysis was significant for 1+ blood with 1+ rbc, no wbc, trace bacteria, negative leukocyte esterase and negative nitrites. She underwent an abdomen and pelvis CT , which showed no evidence of obstructive uropathy, no other masses or fluid collections noted. She also underwent a transvaginal ultrasound, which had no documented adnexal masses, but neither ovary was visualized. It appears the patient was admitted for intractable pain, and she briefly required IV pain control. By next morning, the patient's pain had considerably improved with IV Dilaudid. She states that she thinks she had a kidney stone that she had passed , although she did not have pain radiating to her groin and the flank pain was bilateral. On the day of discharge, the patient did report recurrence of chronic migraine. She states that she has had head imaging as an outpatient. She has failed a trial of Imitrex and now she is on barbiturates for pain control. She denies being referred to a neurologist. While admitted, she was given IV Toradol with good effect and was able to tolerate food and was ready for discharge. DIAGNOSTIC STUDIES/LAB DATA: CBC unremarkable. BNP and LFTs unremarkable. Lactic acid 2.4, decreased to 0.9 after fluids. UA was 1+ blood and 1+ rbc's, negative for nitrites and leukocyte esterase, has bacteria 1+ with cultures pending. CT abdomen and pelvis: Liver is normal in size, but diffusely decreased in density consistent with hepatic steatosis. No evidence of obstructive uropathy noted. No other mass or fluid collections noted. Transvaginal ultrasound neither ovary visualized, uncertain if these are surgically absent. No documented adnexal mass. DISCHARGE PLAN: The patient was discharged to follow up with her primary care physician. She is also referred to Neurology for management of chronic migraine headaches not improved with her current abortive therapies. She should be considered for daily prophylaxis for migraine headaches. It was recommended that patient stop her estrogen hormonal replacement therapy given her history of migraine with auras. The patient elected to discuss this with her PCP, otherwise her medications were not changed. She was given return precautions, which include but are not limited to recurrence of hematuria or new symptoms of fever. She is to eat a healthy diet, low in processed foods and resume activity as tolerated. DISPOSITION: To home. CONDITION: Good. TIME SPENT: Approximately 60 minutes was spent on discharge of this patient, more than half of which was spent with care coordination at bedside for interview and exam. [id number]/[facility] #: [id number] [facility]
[2019-04-04] MEDS ORDERED: Thyroid TAB* 60 MG PO SCH (06:00)
[2019-04-04] MEDS ORDERED: ARMODAFINIL 250 MG PO SCH (09:00)
[2019-04-04] MEDS ORDERED: Atorvastatin* 40 MG TAB PO SCH (09:00)
[2019-04-04] MEDS ORDERED: Hydrochlorothiazide TAB* 25 MG PO SCH (09:00)
== END 2019-04-03 19:00 | disposition home or self-care (01) ==
LOC: ED 15:48 → MED 04-03 00:01
PROVIDERS: ADMIT Internal Medicine; ATTEND Internal Medicine
DX: R10.84 Generalized abdominal pain (principal); G43.909 Migraine, unspecified, not intractable, without status migrainosus; I10 Essential (primary) hypertension; E03.9 Hypothyroidism, unspecified; J44.9 Chronic obstructive pulmonary disease, unspecified; F41.9 Anxiety disorder, unspecified; F32.9 Major depressive disorder, single episode, unspecified; M79.7 Fibromyalgia; Z79.899 Other long term (current) drug therapy; Z87.442 Personal history of urinary calculi; N12 Tubulo-interstitial nephritis, not specified as acute or chronic; E87.2 Acidosis
CPT/HCPCS: 36415; 74176; 76830; 80053; 81003; 81015; 83605; 83690; 85025; 86140; 87086; 96361; 96374; 96375; 96376; 99283; A9270-GY; G0378; J1170; J1885; J2405; J3535

== ENCOUNTER 2019-10-10 13:27 | Emergency (ER) | payer MEDICARE ==
[2019-10-10 13:45] VITALS: BP 165/102
--- NOTE | 2019-10-10 14:15 | ED ---
Complex/Multi-Sys Presentation - HPI Summary HPI Summary: Patient is a 59 y/o F who was recently diagnosed with PNA who presents to [facility] with complaints of worsened SOB. She was prescribed antibiotics and prednisone but reports that she has finished her prescription. She has not been tested for COVID-19. Patient additionally notes that she has a focal rash to her right lower back. Hx of multiple episodes of shingles is reported. Patient additionally has PMHx of COPD, LBBB. Home medications and allergies are reviewed. - History Of Current Complaint Time Seen by Provider: 10/10/19 13:29 Hx Obtained From: Patient Onset/Duration: Still Present Timing: Constant Aggravating Factor(s): nothing Alleviating Factor(s): nothing Associated Signs And Symptoms: Positive: SOB, Other - rash - Allergies/Home Medications Allergies/Adverse Reactions: Allergies Allergy/AdvReac Type Severity Reaction Status Date / Time latex Allergy ITCHY Verified 04/02/19 15:54 morphine Allergy Itching Verified 04/02/19 15:54 Home Medications: Home Medications Armodafinil (NF) [Nuvigil (NF)] 250 mg PO DAILY 09/10/17 [History Confirmed ] Atenolol TAB* [Tenormin TAB* 50 MG] 50 mg PO DAILY 09/10/17 [History Confirmed 10/10/19] DULoxetine DR CAP* [Cymbalta CAP*] 120 mg PO DAILY 09/10/17 [History Confirmed 10/10/19] LORazepam TAB(*) [Ativan 0.5 MG TAB (*)] 0.5 mg PO BID PRN 09/10/17 [History Confirmed 10/10/19] traZODone TAB* [Desyrel TAB*] 100 mg PO BEDTIME 09/10/17 [History Confirmed ] Budesonide/Formote 160/4.5(NF) [Symbicort 160/4.5 (NF)] 2 puff INH BID 12/27/17 [History Confirmed 10/10/19] Ibuprofen TAB* [Motrin TAB* 800 MG] 800 mg PO Q6H PRN 12/27/17 [History Confirmed 10/10/19] Ondansetron [Ondansetron Odt] 4 mg PO BID PRN 12/27/17 [History Confirmed ] Rosuvastatin (NF) [Crestor (NF)] 20 mg PO DAILY 04/03/19 [History Confirmed ] hydroCHLOROthiazide [Hydrochlorothiazide] 12.5 mg PO DAILY 04/03/19 [History Confirmed 10/10/19] Acyclovir OINT 5%(NF) [Zovirax Oint 5%(NF)] 1 applic TOPICAL TID 10/10/19 [ History Confirmed 10/10/19] Albuterol HFA INHALER* [Ventolin HFA Inhaler*] 2 puff INH Q4H PRN 10/10/19 [ History Confirmed 10/10/19] Cyclobenzaprine (NF) [Cyclobenzaprine 5 MG (NF)] 5 - 10 mg PO TID PRN 10/10/19 [ History Confirmed 10/10/19] L.acidoph,Paracasei, B.lactis [Probiotic] 1 each PO DAILY 10/10/19 [History Confirmed 10/10/19] Potassium Citrate (NF) [Urocit-K 10 (NF)] 10 meq PO TID 10/10/19 [History Confirmed 10/10/19] Thyroid,Pork [[place] Thyroid] 60 mg PO DAILY 10/10/19 [History Confirmed ] Tiotropium CAPSULE (NF) [Spiriva CAPSULE (NF)] 1 cap.inh INH DAILY 10/10/19 [ History Confirmed 10/10/19] Topiramate TAB(*) [Topamax 100 mg tab] 100 mg PO BID 10/10/19 [History Confirmed 10/10/19] Vilazodone (NF) [Viibryd (NF)] 20 mg PO DAILY 10/10/19 [History Confirmed ] PMH/Surg Hx/FS Hx/Imm Hx Endocrine/Hematology History: Reports: Hx Thyroid Disease - HYPOTHYROIDISM Denies: Hx Diabetes Cardiovascular History: Reports: Hx Angina, Hx Hypercholesterolemia, Hx Hypertension - ON MEDICATION FOR, Other Cardiovascular Problems/Disorders - LEFT BUNDLE BRANCH BLOCK Denies: Hx Coronary Artery Disease, Hx Myocardial Infarction, Hx Pacemaker/ ICD, Hx Valvular Heart Disease Respiratory History: Reports: Hx Asthma, Hx Chronic Obstructive Pulmonary Disease (COPD), Hx Sleep Apnea GI History: Reports: Hx Hiatal Hernia, Hx Irritable Bowel, Other GI Disorders - RETROPERTINEAL HERNIA History: Reports: Hx Kidney Stones - HX OF HOSPITALIZED X 4 IN THE PAST 6MO FOR THIS Musculoskeletal History: Reports: Hx Orthopedic Injury - FX RIGHT FOOT , Hx Tendonitis - ELBOWS, Other Musculoskeletal History - DDD Sensory History: Reports: Hx Cataracts - BILATERAL, Hx Contacts or Glasses - GLASSES Denies: Hx Hearing Aid Opthamlomology History: Reports: Hx Cataracts - BILATERAL, Hx Contacts or Glasses - GLASSES Neurological History: Reports: Hx Migraine - TREATS WITH BUTALBITAL, Other Neuro Impairments/Disorders - FIBROMYALGIA Psychiatric History: Reports: Hx Anxiety - PRN MEDICATION FOR, Hx Depression Denies: Hx Panic Disorder - Cancer History Hx Chemotherapy: No Hx Radiation Therapy: No - Surgical History Surgery Procedure, Year, and Place: 6 OVARIAN SURGERYS (TUBAL SX & REVERSAL) AT [facility] and [facility] [place]. HYSTERECTOMY. CARDIAC CATH 2002 @ [facility] [place]. NUMEROUS KIDNEY SURGERIES FOR STONES Hx Anesthesia Reactions: No - Immunization History Date of Tetanus Vaccine: UTD Date of Influenza Vaccine: UTD Infectious Disease History: Yes Infectious Disease History: Denies: Hx Clostridium Difficile, Hx Hepatitis, Hx Human Immunodeficiency Virus (HIV), Hx of Known/Suspected MRSA, Hx Shingles, Hx Tuberculosis, Hx Known/ Suspected VRE, Hx Known/Suspected VRSA, History Other Infectious Disease, Traveled Outside the [place] in Last 30 Days - Family History Known Family History: Positive: Cardiac Disease - Father with CO at 50, Other - Breast CA - Social History Alcohol Use: Occasionally Hx Substance Use: No Substance Use Type: Reports: None Hx Tobacco Use: Yes Smoking Status (MU): Former Smoker Amount Used/How Often: 1-1.5 PPD X 25 YEARS Review of Systems Positive: Shortness Of Breath Positive: Rash All Other Systems Reviewed And Are Negative: Yes Physical Exam - Summary Physical Exam Summary: Constitutional: Well-developed, Well-nourished, Alert. (-) Distressed Skin: Warm, Dry; Focal rash to right lower back, concerning for possible shingles, no vesicles noted. HENT: Normocephalic; Atraumatic Eyes: Conjunctiva normal Neck: Musculoskeletal ROM normal neck. (-) JVD, (-) Stridor, (-) Tracheal deviation Cardio: Rhythm regular, rate normal, Heart sounds normal; Intact distal pulses; The pedal pulses are 2+ and symmetric. Radial pulses are 2+ and symmetric. (-) Murmur Pulmonary/Chest wall: Effort normal. (-) Respiratory distress, (-) Wheezes, (-) Rales Abd: Soft, (-) tenderness, (-) Distension, (-) Guarding, (-) Rebound Musculoskeletal: (-) Edema Lymph: (-) Cervical adenopathy Neuro: Alert, Oriented x3 Psych: Mood and affect Normal Triage Information Reviewed: Yes Vital Signs On Initial Exam: Initial Vitals Temp Pulse Resp BP Pulse Ox 98.8 F 106 20 165/102 100 10/10/19 13:38 10/10/19 13:38 10/10/19 13:38 10/10/19 13:38 10/10/19 13:38 Vital Signs Reviewed: Yes Procedures - Sedation Patient Received Moderate/Deep Sedation with Procedure: No Diagnostics - Vital Signs Vital Signs Temp Pulse Resp BP Pulse Ox 10/10/19 13:38 98.8 F 106 20 165/102 100 - Laboratory Result Diagrams: 10/10/19 13:55 10/10/19 13:55 Lab Statement: Any lab studies that have been ordered have been reviewed, and results considered in the medical decision making process. - Radiology CXR Radiology Interpretation Completed By: Radiologist Summary of Radiographic Findings: IMPRESSION: No acute cardiopulmonary process by radiograph. THIS REPORT WAS REVIEWED BY ED PHYSICIAN. - EKG 1458 Cardiac Rate: NL - rate of 84 BPM EKG Rhythm: Sinus Rhythm Summary of EKG Findings: EKG showed sinus rhythm with rate of 84 BPM, LBBB, no STEMI. ED physician has reviewed and interpreted this EKG. Complex Multi-Symp Course/Dx Course Of Treatment: Patient is a 59 y/o F who was recently diagnosed with PNA who presents to [facility] with complaints of worsened SOB. She was prescribed antibiotics and prednisone but reports that she has finished her prescription. She has not been tested for COVID-19. Patient additionally notes that she has a focal rash to her right lower back. Hx of multiple episodes of shingles is reported. Patient additionally has PMHx of COPD, LBBB. Focal rash to right lower back, concerning for possible shingles, no vesicles noted. CXR showed no acute cardiopulmonary process by radiograph. Bloodwork was obtained. D-dimer was negative, troponin was negative. Abnormal values include WBC 12, RBC 4.99, absolute neuts 9.1, potassium 3.2, BUN 27, BUN/creatinine ratio 37, glucose 105. Influenza A and B were negative. During ED course, patient received fluids. EKG showed sinus rhythm with rate of 84 BPM, LBBB, no STEMI. COVID-19 testing is received and results are pending at this time. Low suspicion for this disease at current time. Patient discharged to home with PCP followup. - Diagnoses Provider Diagnoses: Dyspnea Discharge ED - Sign-Out/Discharge Documenting (check all that apply): Patient Departure - discharge - Discharge Plan Condition: Stable Disposition: HOME Patient Education Materials: Dyspnea (ED) Forms: COVID-19 Tested & Isolation Referrals: Camille Abbott MD [Primary Care Provider] - 3 Days Additional Instructions: PLEASE RETURN TO ED FOR ANY NEW OR CONCERNING SYMPTOMS. PLEASE FOLLOWUP WITH YOUR PRIMARY CARE PHYSICIAN WITHIN THREE DAYS. - Billing Disposition and Condition Condition: STABLE Disposition: Home - Attestation Statements Document Initiated by Kamrynibe: Yes Documenting Scribe: KEITH FUENTES Provider For Whom Scribe is Documenting (Include Credential): KIMANI MARTINEZ DO Scribe Attestation: KEITH Collins scribed for KIMANI MARTINEZ DO on 10/10/19 at 1739. Scribe Documentation Reviewed: Yes Provider Attestation: The documentation as recorded by the KEITH montoya accurately reflects the service I personally performed and the decisions made by KIMANI macedo DO Status of Scribe Document: Viewed
[2019-10-10 14:30] LABS: ABS Lymphocytes 2.1 10^3/ul (1.0-4.8); ABS Monocytes 0.8 10^3/ul (0-0.8); ABS Neutrophils 9.1 10^3/ul (1.5-7.7); Hematocrit 43 % (35-47); Hemoglobin 14.9 g/dL (12.0-16.0); Lymphocyte % 17.5 %; Mean Corpuscular HGB Conc 34 g/dL (31-36); Mean Corpuscular Hemoglobin 30 pg (27-31); Mean Corpuscular Volume 87 fL (80-97); Mean Platelet Volume 7.8 fL (7.4-10.4); Platelet Count 300 10^3/uL (150-450); Red Blood Count 4.99 10^6 /uL (3.70-4.87); Red Cell Distribution Width 13 % (10-15)
[2019-10-10 14:37] LABS: Influenza A Molecular Negative (Negative); Influenza B Molecular Negative (Negative)
--- OUTSIDE RECORDS SUMMARY | 2019-10-10 14:37 | XMS REPORT ---
:1960 Author Organization [facility] Care Team Providers Name Role Phone NATO HOLLAND Primary Care Physician Unavailable Allergies, Adverse Reactions, Alerts Allergy Code CodeSystem Reaction Severity Criticality Status Start Substance Date Moderate Medications Medication Medication Medication Start Stop Route Dose Status Fill Code CodeSystem Date Date Instructions Viibryd 7293690 RxNorm 2018-12- oral 20 mg completed for 03-12 tablet day(s) Nuvigil 135806 RxNorm 2018-10- oral 250 mg 1 completed Take 1 tablet -19 07-18 tablet every every morning for morning 30 day(s) Nuvigil 787466 RxNorm 2019-02 oral 250 mg 1 active Take 1 tablet -14 tablet every every morning for morning 30 day(s) Viibryd 0941186 RxNorm 2018- oral 10 mg completed for 01-12 tablet day(s) trazodone 523335 RxNorm 2019-02- oral 50 mg active for 02-20 tablet day(s) Viibryd 2498242 RxNorm 2019-02- oral 20 mg 1 completed Take 1 tablet -26 11-24 tablet once a day once a for day(s) day Benadryl 4274843 RxNorm 2018-11- oral 25 mg completed for 12-20 capsule day(s) duloxetine 477375 RxNorm 2019-02- oral 60 mg active for - capsule, day(s) delayed release( DR/EC) Viibryd 2472017 RxNorm 2018-12- oral 20 mg completed for 02-11 tablet day(s) Problems Problem Name Code CodeSystem Alternate Alternate Start End Status Narrative Code CodeSystem Date Date Fibromyalgia [id number] SNOMED-CT 2019-0 Active 4-02 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, recurrent, in partial remission Relevant diagnostic tests/laboratory data Narrative No Information Procedures Procedure Code CodeSystem Target Date of Status Service Device Device Device Name Site Procedure Delivery Code Name UID Location Psychotherap [id number] SNOMED-CT () 2018-10-30 complete Mental y, 45 04 d Health- minutes with [facility] patient [address], [id number] SNOMED-CT () 2018-11-15 complete Mental d Health- [facility] [address], [id number] [phone] Office [place] [id number] SNOMED-CT () 2018-11-20 complete Mental other 7 d Health- outpatient [facility] visit for [address], established [id number] patient, [phone] which requires at least 2 of these 3 hinton components: An expanded problem focused history; An expanded problem focused examination; Medical decision making of [facility] Office or [id number] SNOMED-CT () 2018-12-13 complete Mental other 6 d Health- outpatient [facility] visit for [address], established [id number] patient, [phone] which requires at least 2 of these 3 hinton components: A problem focused history; A problem focused examination; [facility] medical decision making. [facility]in Psychotherap [id number] SNOMED-CT () 2018-12-21 complete Mental y, 45 04 d Health- minutes with [facility] patient [address], [id number] [phone] Office or [id number] SNOMED-CT () 2018-12-25 complete Mental other 6 d Health- outpatient [facility] visit for [address], established [id number] patient, [phone] which requires at least 2 of these 3 hinton components: A problem focused history; A problem focused examination; [facility] medical decision making. Counselin Office or [id number] SNOMED-CT () 2019-01-09 complete Mental other 7 d Health- outpatient [facility] visit for [address], [facility] [id number] patient, [phone] which requires at least 2 of these 3 hinton components: An expanded problem focused history; An expanded problem focused examination; Medical decision making of [facility] Psychotherap [id number] SNOMED-CT () 2019-01-08 complete Mental y, 45 04 d Health- minutes with [facility] patient [address], [id number] [id number] Psychotherap [id number] SNOMED-CT () 2019-01-22 complete Mental y, 45 04 d Health- minutes with [facility] patient [address], [id number] [id number] Psychotherap [id number] SNOMED-CT () 2019-02-06 complete Mental y, 45 04 d Health- minutes with [facility] patient [address], [id number] Group [id number] SNOMED-CT () 2019-02-07 complete Mental psychotherap 8 d Health- y (other [facility] than of a [address]) [place], [place], [id number] [id number] Office or [id number] SNOMED-CT () 2019-03-12 complete Mental other 7 d Health- outpatient [facility] visit for [address], of an [place], established [id number] patient, [phone] which requires at least 2 of these 3 hinton components: An expanded problem focused history; An expanded problem focused examination; Medical decision making of [facility] Group [id number] SNOMED-CT () 2019-02-21 complete Mental psychotherap 8 d Health- y (other [place] than of a [address] group) [place], [place], [id number] [phone] Psychotherap [id number] SNOMED-CT () 2019-03-20 complete Mental y, 45 04 d Health- minutes with [facility] patient [address], [id number] Group [id number] SNOMED-CT () 2019-03-28 complete Mental psychotherap 8 d Health- y (other [place] than of a [address]) [place], [place], [id number] Group [id number] SNOMED-CT () 2019-04-11 complete Mental psychotherap 8 d Health- y (other [place] than of a [address], [id number] [phone] SNOMED-CT () 2019-04-12 complete Mental d Health- [facility], [id number] [id number] SNOMED-CT () 2019-02-20 complete Mental d Health- [facility], [id number] [id number] Psychotherap [id number] SNOMED-CT () 2019-05-14 complete Mental y, 45 04 d Health- minutes with [facility] patient [address], [id number] [id number] Office or [id number] SNOMED-CT () 2019-05-14 complete Mental other 6 d Health- outpatient [facility] visit for [address], [facility] [id number] patient, [phone] which requires at least 2 of these 3 hinton components: A problem focused history; A problem focused examination; [facility] medical decision making. Counselin Psychotherap [id number] SNOMED-CT () 2019-04-25 complete Mental y, 45 04 d Health- minutes with [facility] patient [address], [id number] [phone] Psychotherap [id number] SNOMED-CT () 2019-05-30 complete Mental y, 45 04 d Health- minutes with [facility] patient [address], [id number] [id number] Office or [id number] SNOMED-CT () 2019-07-03 complete Mental other 6 d Health- outpatient [facility] visit for [address] [id number] patient, [phone] which requires at least 2 of these 3 hinton components: A problem focused history; A problem focused examination; [facility] medical decision making. Counselin SNOMED-CT () 2019-07-19 complete Mental d Health- [facility], [id number] Group [id number] SNOMED-CT () 2019-07-25 complete Mental psychotherap 8 d Health- y (other [place] than of a [address]) [place], [place], [id number] [id number] Psychotherap [id number] SNOMED-CT () 2019-07-31 complete Mental y, 45 04 d Health- minutes with [facility] patient [address], [id number] Group [id number] SNOMED-CT () 2019-08-01 complete Mental psychotherap 8 d Health- y (other [facility] than of a [address]) [place], [place], [id number] [phone] SNOMED-CT () 2019-08-13 complete Mental d Health- [place] [address], [phone] Encounters/Encounter Diagnoses Encounter Name Encounter Diagnosis Diagnosis Diagnosis Date of Service Code Code Name CodeSystem Diagnosis Delivery Location [facility] [id number] Major SNOMED-CT 2019-08-15 Behavioral Group 1hr depressive Health disorder, Clinic , , recurrent, , in partial remission Vital Signs No Information Social History Element Description Description Start End Code CodeSystem AdditionalInfo Date Date SexAssignedAtBirth Female 0 F AdministrativeGender 02-12 Hospital Discharge Instructions Reason For Referral Medical Equipment FDA Assessments
--- OUTSIDE RECORDS SUMMARY | 2019-10-10 14:37 | XMS REPORT ---
:1960 Author Organization [facility] Care Team Providers Name Role Phone NATO HOLLAND Primary Care Physician Unavailable Allergies, Adverse Reactions, Alerts Allergy Code CodeSystem Reaction Severity Criticality Status Start Substance Date Moderate Medications Medication Medication Medication Start Stop Route Dose Status Fill Code CodeSystem Date Date Instructions Viibryd 9404786 RxNorm 2019- oral 10 mg completed for 01-12 tablet day(s) Viibryd 1407923 RxNorm 2018-12- oral 20 mg completed for 03-12 tablet day(s) Viibryd 5515647 RxNorm 2019-02- oral 20 mg active for 09-15 tablet day(s) Benadryl 5933367 RxNorm 2018-11- oral 25 mg completed for - capsule day(s) Viibryd 9449690 RxNorm 2019-02- oral 20 mg 1 completed Take 1 tablet -26 -24 tablet once a day once a for 90 day(s) day Nuvigil 755599 RxNorm 2019-02- oral 250 mg 1 active Take 1 tablet -14 -29 tablet every every morning for morning 30 day(s) Viibryd 4192039 RxNorm 2018-12- oral 20 mg completed for - tablet day(s) trazodone 658036 RxNorm 2019-02- oral 50 mg active for 02- tablet day(s) Nuvigil 976417 RxNorm 2018-10- oral 250 mg 1 completed Take 1 tablet -19 07-18 tablet every every morning for morning 30 day(s) duloxetine 203318 RxNorm 2019-02- oral 60 mg active for 08- capsule, day(s) delayed release( DR/EC) Problems Problem Name Code CodeSystem Alternate Alternate Start End Status Narrative Code CodeSystem Date Date Major [id number] SNOMED-CT 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, recurrent, in partial remission Fibromyalgia 18436965 SNOMED-CT Active 4-02 Relevant diagnostic tests/laboratory data Narrative No Information Procedures Procedure Code CodeSystem Target Date of Status Service Device Device Device Name Site Procedure Delivery Code Name UID Location Psychotherap [id number] SNOMED-CT () 2018-10-30 complete Mental y, 45 04 d Health- minutes with [facility] patient [address], [id number] SNOMED-CT () 2018-11-15 complete Mental d Health- [place] [address], [id number] [phone] Office or [id number] SNOMED-CT () 2018-11-20 complete Mental other 7 d Health- outpatient [facility] visit for [address], established [id number] patient, [phone] which requires at least 2 of these 3 hinton components: An expanded problem focused history; An expanded problem focused examination; Medical decision making of [facility] Office or [id number] SNOMED-CT () 2018-12-13 complete Mental other 6 d Health- outpatient [facility] visit for [address], established [id number] patient, [phone] which requires at least 2 of these 3 hinton components: A problem focused history; A problem focused examination; [facility] medical decision making. Counselin Psychotherap [id number] SNOMED-CT () 2018-12-21 complete Mental y, 45 04 d Health- minutes with [facility] patient [address], [id number] [id number] Office or [id number] SNOMED-CT () 2018-12-25 complete Mental other 6 d Health- outpatient [place] visit for [address], established [id number] patient, [phone] which requires at least 2 of these 3 hinton components: A problem focused history; A problem focused examination; [facility] medical decision making. Counselin Office or [id number] SNOMED-CT () 2019-01-09 complete Mental other 7 d Health- outpatient [facility] visit for [address], [facility], [place], established [id number] patient, [phone] which requires at least 2 of these 3 hinton components: An expanded problem focused history; An expanded problem focused examination; Medical decision making of [facility] Psychotherap [id number] SNOMED-CT () 2019-01-08 complete Mental y, 45 04 d Health- minutes with [facility] patient [address], [id number] [id number] Psychotherap [id number] SNOMED-CT () 2019-01-22 complete Mental y, 45 04 d Health- minutes with [facility] patient [address], [id number] [phone] Psychotherap [id number] SNOMED-CT () 2019-02-06 complete Mental y, 45 04 d Health- minutes with [facility] patient [address], [id number] [id number] Group [id number] SNOMED-CT () 2019-02-07 complete Mental psychotherap 8 d Health- y (other [place] than of a [address] group) [place], [place], [phone] Office or [id number] SNOMED-CT () 2019-03-12 complete Mental other 7 d Health- outpatient [facility] visit for [address], [facility], of an [place], established [id number] patient, [phone] which requires at least 2 of these 3 hinton components: An expanded problem focused history; An expanded problem focused examination; Medical decision making of [facility] Group [id number] SNOMED-CT () 2019-02-21 complete Mental psychotherap 8 d Health- y (other [place] than of a [address] group) [place], [place], [id number] [phone] Psychotherap [id number] SNOMED-CT () 2019-03-20 complete Mental y, 45 04 d Health- minutes with [facility] patient [address], [id number] Group [id number] SNOMED-CT () 2019-03-28 complete Mental psychotherap 8 d Health- y (other [place] than of a [address]) [place], [place], [id number] Group [id number] SNOMED-CT () 2019-04-11 complete Mental psychotherap 8 d Health- y (other [place] than of a [address]) [place], [place], [id number] [phone] SNOMED-CT () 2019-04-12 complete Mental d Health- [place], [phone] [phone] SNOMED-CT () 2019-02-20 complete Mental d Health- [address], [phone] [phone] Psychotherap [id number] SNOMED-CT () 2019-05-14 complete Mental y, 45 04 d Health- minutes with [facility] patient [address], [id number] [phone] Office or [id number] SNOMED-CT () 2019-05-14 complete Mental other 6 d Health- outpatient [place] visit for [address], established [id number] patient, [phone] which requires at least 2 of these 3 hinton components: A problem focused history; A problem focused examination; [facility]ight[facility]w rafiq medical decision making. Counselin Psychotherap [id number] SNOMED-CT () 2019-04-25 complete Mental y, 45 04 d Health- minutes with [facility] patient [address], [id number] [id number] Psychotherap [id number] SNOMED-CT () 2019-05-30 complete Mental y, 45 04 d Health- minutes with [facility] patient [address], [id number] [phone] Office or [id number] SNOMED-CT () 2019-07-03 complete Mental other 6 d Health- outpatient [place] visit for [address], [facility] [id number] patient, [phone] which requires at least 2 of these 3 hinton components: A problem focused history; A problem focused examination; Straightforw rafiq medical decision making. Counselin SNOMED-CT () 2019-07-19 complete Mental d Health- [address], [id number] [id number] Group [id number] SNOMED-CT () 2019-07-25 complete Mental psychotherap 8 d Health- y (other [place] than of a [address]) [place], [place], [id number] [phone] Psychotherap [id number] SNOMED-CT () 2019-07-31 complete Mental y, 45 04 d Health- minutes with [facility] patient [address], [id number] [id number] Group [id number] SNOMED-CT () 2019-08-01 complete Mental psychotherap 8 d Health- y (other [place] than of a [address]) [place], [place], [id number] [phone] SNOMED-CT () 2019-08-13 complete Mental d Health- [address], [id number] Group [id number] SNOMED-CT () 2019-08-15 complete Mental psychotherap 8 d Health- y (other [place] than of a [address]) [place], [place], [id number] [phone] Psychotherap [id number] SNOMED-CT () 2019-09-04 complete Mental y, 45 04 d Health- minutes with [facility] patient [address], [phone] Encounters/Encounter Diagnoses Encounter Name Encounter Diagnosis Diagnosis Diagnosis Date of Service Code Code Name CodeSystem Diagnosis Delivery Location Psychotherapy - 03951 [id number] Major SNOMED-CT 2019-09-18 Behavioral Individual 30 depressive Health min disorder, Clinic , , recurrent, , in partial remission Vital Signs No Information Social History Element Description Description Start End Code CodeSystem AdditionalInfo Date Date SexAssignedAtBirth Female 1959-1 F AdministrativeGender 7-29 Hospital Discharge Instructions Reason For Referral Medical Equipment FDA Assessments
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
--- OUTSIDE RECORDS SUMMARY | 2019-10-10 14:37 | XMS REPORT ---
:1960 Author Organization [facility] Care Team Providers Name Role Phone NATO HOLLAND Primary Care Physician Unavailable Allergies, Adverse Reactions, Alerts Allergy Code CodeSystem Reaction Severity Criticality Status Start Substance Date Moderate Medications Medication Medication Medication Start Stop Route Dose Status Fill Code CodeSystem Date Date Instructions Viibryd 9953024 RxNorm 2019-02- oral 20 mg 1 completed Take 1 tablet -26 11-24 tablet once a day once a for 90 day(s) day Viibryd 7294710 RxNorm 2018- oral 10 mg completed for 01-12 tablet day(s) Benadryl 2100364 RxNorm 2018-11- oral 25 mg completed for - capsule day(s) duloxetine 976294 RxNorm 2019-02- oral 60 mg active for 02-28 capsule, day(s) delayed release( DR/EC) Nuvigil 854632 RxNorm 2019-02 oral 250 mg 1 active Take 1 tablet -14 tablet every every morning for morning 30 day(s) Viibryd 0506117 RxNorm 2018-12- oral 20 mg completed for - tablet day(s) Viibryd 5218031 RxNorm 2018-12- oral 20 mg completed for - tablet day(s) Nuvigil 355666 RxNorm 2018-10- oral 250 mg 1 completed Take 1 tablet -19 07-18 tablet every every morning for morning 30 day(s) trazodone 780004 RxNorm 2019-02- oral 50 mg active for 02- tablet day(s) Problems Problem Name Code CodeSystem Alternate Alternate Start End Status Narrative Code CodeSystem Date Date 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, recurrent, in partial remission Fibromyalgia 55900287 SNOMED-CT 2019-0 Active 10-17 Relevant diagnostic tests/laboratory data Narrative No Information Procedures Procedure Code CodeSystem Target Date of Status Service Device Device Device Name Site Procedure Delivery Code Name UID Location Psychotherap [id number] SNOMED-CT () 2019-04-25 complete Mental y, 45 04 d Health- minutes with [place], [id number] Psychotherap [id number] SNOMED-CT () 2019-05-30 complete Mental y, 45 04 d Health- minutes with [address], [id number] Psychotherap [id number] SNOMED-CT () 2019-07-31 complete Mental y, 45 04 d Health- minutes with [address], [id number] [id number] Psychotherap [id number] SNOMED-CT () 2019-05-14 complete Mental y, 45 04 d Health- minutes with [address], [id number] Psychotherap [id number] SNOMED-CT () 2018-10-30 complete Mental y, 45 04 d Health- minutes with [address], [id number] Psychotherap [id number] SNOMED-CT () 2019-03-20 complete Mental y, 45 04 d Health- minutes with [address], [id number] [id number] Psychotherap [id number] SNOMED-CT () 2018-12-21 complete Mental y, 45 04 d Health- minutes with [address], [id number] [id number] Psychotherap [id number] SNOMED-CT () 2019-01-08 complete Mental y, 45 04 d Health- minutes with [address], [id number] [phone] Psychotherap [id number] SNOMED-CT () 2019-01-22 complete Mental y, 45 04 d Health- minutes with [address], [id number] [phone] Psychotherap [id number] SNOMED-CT () 2019-02-06 complete Mental y, 45 04 d Health- minutes with [facility] patient [address], [id number] Group [id number] SNOMED-CT () 2019-02-07 complete Mental psychotherap 8 d Health- y (other [facility] than of a [address] group) [place], [place], [id number] [phone] Group [id number] SNOMED-CT () 2019-03-28 complete Mental psychotherap 8 d Health- y (other [place] than of a [address] group) [place], [place], [id number] [id number] Group [id number] SNOMED-CT () 2019-04-11 complete Mental psychotherap 8 d Health- y (other [place] than of a [address] group) [place], [place], [id number] Group [id number] SNOMED-CT () 2019-08-01 complete Mental psychotherap 8 d Health- y (other [place] than of a [address] group) [place], [place], [id number] [id number] Group [id number] SNOMED-CT () 2019-02-21 complete Mental psychotherap 8 d Health- y (other [place] than of a [address] group) [place], [place], [id number] [id number] Group [id number] SNOMED-CT () 2019-07-25 complete Mental psychotherap 8 d Health- y (other [place] than of a [address] group) [place], [place], [id number] [phone] Office or [id number] SNOMED-CT () 2019-01-09 complete Mental other 7 d Health- outpatient [place] visit for [address], of an [place], established [id number] patient, [phone] which requires at least 2 of these 3 hinton components: An expanded problem focused history; An expanded problem focused examination; Medical decision making of [facility] Office or [id number] SNOMED-CT () 2019-03-12 complete Mental other 7 d Health- outpatient [facility] visit for [address], established [id number] patient, [phone] which requires at least 2 of these 3 hinton components: An expanded problem focused history; An expanded problem focused examination; Medical decision making of [facility] Office or [id number] SNOMED-CT () 2018-11-20 complete Mental other 7 d Health- outpatient [place] visit for [address], established [id number] patient, [phone] which requires at least 2 of these 3 hinton components: An expanded problem focused history; An expanded problem focused examination; Medical decision making of [facility] Office or [id number] SNOMED-CT () 2018-12-13 complete Mental other 6 d Health- outpatient [place] visit for [address], established [id number] patient, [phone] which requires at least 2 of these 3 hinton components: A problem focused history; A problem focused examination; [facility] medical decision making. [facility] Office or [id number] SNOMED-CT () 2018-12-25 complete Mental other 6 d Health- outpatient [facility] visit for [address], established [id number] patient, [phone] which requires at least 2 of these 3 hinton components: A problem focused history; A problem focused examination; [facility] medical decision making. [facility] Office or [id number] SNOMED-CT () 2019-05-14 complete Mental other 6 d Health- outpatient [place] visit for [address], established [id number] patient, [phone] which requires at least 2 of these 3 hinton components: A problem focused history; A problem focused examination; [facility] medical decision making. Counsel[facility] Office or [id number] SNOMED-CT () 2019-07-03 complete Mental other 6 d Health- outpatient [place] visit for [address], established [id number] patient, [phone] which requires at least 2 of these 3 hinton components: A problem focused history; A problem focused examination; [facility] medical decision making. Jonathanin SNOMED-CT () 2018-11-15 complete Mental d [address], [id number] [id number] SNOMED-CT () 2019-04-12 complete Mental d [address], [id number] [phone] SNOMED-CT () 2019-02-20 [facility] Mental d [address], [id number] [phone] SNOMED-CT () 2019-07-19 [facility] Mental [address], [id number] [phone] Encounters/Encounter Diagnoses Encounter Encounter Diagnosis Diagnosis Diagnosis Date of Service Name Code Code Name CodeSystem Diagnosis Delivery Location Non-Billable [id number] Major SNOMED-CT 2019-08-08 Behavioral depressive Health disorder, Clinic , , recurrent, in , partial remission Vital Signs No Information Social History Element Description Description Start End Code CodeSystem AdditionalInfo Date Date SexAssignedAtBirth Female 9-0 F AdministrativeGender 02-12 Hospital Discharge Instructions Reason For Referral Medical Equipment FDA Assessments
[2019-10-10] MEDS ORDERED: NS 0.9% 1000 ML** 1,000 ML IV ONE (14:39)
[2019-10-10 14:46] LABS: Albumin 4.5 g/dL (3.2-5.2); Albumin/Globulin Ratio 1.2 (1-3); EGFR African American 98.4 (>60); EGFR Non-African American 81.3 (>60); Globulin 3.7 g/dL (2-4); Potassium 3.2 mmol/L (3.5-5.0); Total Bilirubin 0.4 mg/dL (0.2-1.0); Total Protein 8.2 g/dL (6.4-8.9)
== END 2019-10-10 17:31 | disposition home or self-care (01) ==
LOC: ED 13:27
DX: R06.00 Dyspnea, unspecified (principal); R06.02 Shortness of breath; R21 Rash and other nonspecific skin eruption; Z88.6 Allergy status to analgesic agent; E03.9 Hypothyroidism, unspecified; E78.00 Pure hypercholesterolemia, unspecified; I10 Essential (primary) hypertension; I44.7 Left bundle-branch block, unspecified; F41.9 Anxiety disorder, unspecified; Z87.891 Personal history of nicotine dependence; Z87.442 Personal history of urinary calculi; Z79.899 Other long term (current) drug therapy; Z20.828 Contact with and (suspected) exposure to other viral communicable diseases
CPT/HCPCS: 36415; 71045; 80053; 84484; 85025; 85379; 87635; 93005; 96360; 99284

== ENCOUNTER 2019-10-18 12:11 | Emergency (ER) | payer MEDICARE ==
--- OUTSIDE RECORDS SUMMARY | 2019-10-18 12:51 | XMS REPORT ---
:1960 Author Organization [facility] Care Team Providers Name Role Phone NATO HOLLAND Primary Care Physician Unavailable Allergies, Adverse Reactions, Alerts Allergy Code CodeSystem Reaction Severity Criticality Status Start Substance Date Moderate Medications Medication Medication Medication Start Stop Route Dose Status Fill Code CodeSystem Date Date Instructions Viibryd 7673354 RxNorm 2019-02- oral 20 mg 1 completed Take 1 tablet -26 -24 tablet once a day once a for 90 day(s) day Viibryd 3058489 RxNorm 2018-12- oral 20 mg completed for 02-11 tablet day(s) Viibryd 7722294 RxNorm 2018- oral 10 mg completed for 01-12 tablet day(s) trazodone 934556 RxNorm 2019-02- oral 50 mg active for - tablet day(s) duloxetine 154892 RxNorm 2019-02- oral 60 mg active for - capsule, day(s) delayed release( DR/EC) Nuvigil 695871 RxNorm 2018-10- oral 250 mg 1 completed Take 1 tablet -19 07-18 tablet every every morning for morning 30 day(s) Nuvigil 829144 RxNorm 2019-02 2020- oral 250 mg 1 active Take 1 tablet -14 -29 tablet every every morning for morning 30 day(s) Viibryd 6720122 RxNorm 2018-12 2019- oral 20 mg completed for - tablet day(s) Viibryd 9455655 RxNorm 2019-02 2020- oral 20 mg active for - tablet day(s) Benadryl 5910039 RxNorm 2018-11- oral 25 mg completed for - capsule day(s) Problems Problem Name Code CodeSystem Alternate Alternate Start End Status Narrative Code CodeSystem Date Date Major [id number] SNOMED-CT 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, recurrent, in partial remission Fibromyalgia 08008806 SNOMED-CT Active 4-02 Relevant diagnostic tests/laboratory data Narrative No Information Procedures Procedure Code CodeSystem Target Date of Status Service Device Device Device Name Site Procedure Delivery Code Name UID Location Psychotherap [id number] SNOMED-CT () 2019-05-30 complete Mental y, 45 04 d Health- minutes with [place] patient [address], [id number] [id number] Psychotherap [id number] SNOMED-CT () 2019-04-25 complete Mental y, 45 04 d Health- minutes with [facility] patient [address], [id number] [phone] SNOMED-CT () 2019-07-19 complete Mental d Health- [place], [id number] [id number] Group [id number] SNOMED-CT () 2019-07-25 complete Mental psychotherap 8 d Health- y (other [place] than of a [address]) [place], [place], [id number] [phone] Group [id number] SNOMED-CT () 2019-02-07 complete Mental psychotherap 8 d Health- y (other [place] than of a [address]) [place], [place], [id number] [phone] Psychotherap [id number] SNOMED-CT () 2019-03-20 complete Mental y, 45 04 d Health- minutes with [facility] patient [address], [id number] [phone] Psychotherap [id number] SNOMED-CT () 2019-01-08 complete Mental y, 45 04 d Health- minutes with [facility] patient [address], [id number] [phone] Office or [id number] SNOMED-CT () 2018-12-13 complete Mental other 6 d Health- outpatient [facility] visit for [address], of an [place], established [id number] patient, [phone] which requires at least 2 of these 3 hinton components: A problem focused history; A problem focused examination; [facility] medical decision making. [facility] Group [id number] SNOMED-CT () 2019-04-11 complete Mental psychotherap 8 d Health- y (other [place] than of a [address], [id number] [phone] Psychotherap [id number] SNOMED-CT () 2019-07-31 complete Mental y, 45 04 d Health- minutes with [place] patient [address], [id number] [phone] Psychotherap [id number] SNOMED-CT () 2018-10-30 complete Mental y, 45 04 d Health- minutes with [place] patient [address], [id number] [phone] Office or [id number] SNOMED-CT () 2019-03-12 complete Mental other 7 d Health- outpatient [place] visit for [address] [id number] patient, [phone] which requires at least 2 of these 3 hinton components: An expanded problem focused history; An expanded problem focused examination; Medical decision making of low SNOMED-CT () 2019-02-20 complete Mental d Health- [facility], [id number] [phone] Psychotherap [id number] SNOMED-CT () 2019-09-18 complete Mental y, 45 04 d Health- minutes with [place] patient [address], [id number] [phone] SNOMED-CT () 2018-11-15 complete Mental d Health- [place] [address], [id number] [phone] Psychotherap [id number] SNOMED-CT () 2018-12-21 complete Mental y, 45 04 d Health- minutes with [place] patient [address], [id number] [phone] Office or [id number] SNOMED-CT () 2019-01-09 complete Mental other 7 d Health- outpatient [place] visit for [address] [id number] patient, [phone] which requires at least 2 of these 3 hinton components: An expanded problem focused history; An expanded problem focused examination; Medical decision making of [facility] Group [id number] SNOMED-CT () 2019-08-01 complete Mental psychotherap 8 d Health- y (other [place] than of a [address]) [place], [place], [id number] [phone] Psychotherap [id number] SNOMED-CT () 2019-02-06 complete Mental y, 45 04 d Health- minutes with [facility] patient [address], [id number] [phone] Group [id number] SNOMED-CT () 2019-03-28 complete Mental psychotherap 8 d Health- y (other [place] than of a [address] group) [place], [id number] [id number] Group [id number] SNOMED-CT () 2019-09-19 complete Mental psychotherap 8 d Health- y (other [place] than of a [address] group) [place], [id number] [phone] Office or [id number] SNOMED-CT () 2018-12-25 complete Mental other 6 d Health- outpatient [place] visit for [address], [facility] [id number] patient, [phone] which requires at least 2 of these 3 hinton components: A problem focused history; A problem focused examination; [facility] medical decision making. Jonathanin SNOMED-CT () 2019-08-13 complete Mental d Health- [place] [address], [id number] [phone] Office or [id number] SNOMED-CT () 2018-11-20 complete Mental other 7 d Health- outpatient [place] visit for [address], of [facility] established [id number] patient, [phone] which requires at least 2 of these 3 hinton components: An expanded problem focused history; An expanded problem focused examination; Medical decision making of [facility] Group [id number] SNOMED-CT () 2019-02-21 complete Mental psychotherap 8 d Health- y (other [place] than of a [address]) [place], [place], [id number] [phone] Office or [id number] SNOMED-CT () 2019-07-03 complete Mental other 6 d Health- outpatient [place] visit for [address], established [id number] patient, [phone] which requires at least 2 of these 3 hinton components: A problem focused history; A problem focused examination; [facility]ight[facility]fiq medical decision making. Counselin Psychotherap [id number] SNOMED-CT () 2019-05-14 complete Mental y, 45 04 d Health- minutes with [place] patient [address], [id number] [phone] SNOMED-CT () 2019-04-12 complete Mental d Health- [place] [address], [phone] Psychotherap [id number] SNOMED-CT () 2019-01-22 complete Mental y, 45 04 d Health- minutes with [place] patient [address], [id number] [phone] Office or [id number] SNOMED-CT () 2019-05-14 complete Mental other 6 d Health- outpatient [place] visit for [address], established [id number] patient, [phone] which requires at least 2 of these 3 hinton components: A problem focused history; A problem focused examination; [facility] medical decision making. Counselin Psychotherap [id number] SNOMED-CT () 2019-09-04 complete Mental y, 45 04 d Health- minutes with [place] patient [address], [id number] [id number] Group [id number] SNOMED-CT () 2019-08-15 complete Mental psychotherap 8 d Health- y (other [place] than of a [address]) [place], [place], [id number] [phone] Encounters/Encounter Diagnoses Encounter Encounter Diagnosis Diagnosis Diagnosis Date of Service Name Code Code Name CodeSystem Diagnosis Delivery Location Non-Billable 34501 [id number] Major SNOMED-CT 2019-09-26 Behavioral depressive Health disorder, Clinic , , recurrent, in , partial remission Vital Signs No Information Social History Element Description Description Start End Code CodeSystem AdditionalInfo Date Date SexAssignedAtBirth Female F AdministrativeGender 02-12 Hospital Discharge Instructions Reason For Referral Medical Equipment FDA Assessments
[2019-10-18 13:40] LABS: ABS Basophils 0.1 10^3/ul (0-0.2); ABS Eosinophils 0.2 10^3/ul (0-0.6); ABS Lymphocytes 2.2 10^3/ul (1.0-4.8); ABS Monocytes 0.7 10^3/ul (0-0.8); ABS Neutrophils 5.1 10^3/ul (1.5-7.7); Eosinophil % 1.9 %; Hematocrit 40 % (35-47); Hemoglobin 13.8 g/dL (12.0-16.0); Lymphocyte % 26.6 %; Mean Corpuscular HGB Conc 35 g/dL (31-36); Mean Corpuscular Hemoglobin 30 pg (27-31); Mean Corpuscular Volume 87 fL (80-97); Mean Platelet Volume 7.5 fL (7.4-10.4); Platelet Count 230 10^3/uL (150-450); Red Blood Count 4.61 10^6 /uL (3.70-4.87); Red Cell Distribution Width 13 % (10-15); White Blood Count 8.2 10^3/uL (3.5-10.8)
[2019-10-18 13:47] LABS: INR 1.22 (0.82-1.09)
--- NOTE | 2019-10-18 13:54 | ED ---
Complex/Multi-Sys Presentation - HPI Summary HPI Summary: 59 y/o F presenting to [facility] c/o fatigue, cough, shortness of breath, fever/ chills, dizziness, right thigh pain, chest heaviness. Dx pneumonia 2 weeks ago. She was doing better but got worse last week, came here, and was tested for COVID19 which was negative. She is still fatigued, coughing, short of breath, feverish/cold, dizzy. She developed right calf pain several days ago which has progressed to right thigh throbbing and soreness. She is unsure if her right thigh is more swollen than usual. She is currently having right thigh pain. She also developed chest heaviness several nights ago that is worse with lying flat. She has been unable to sleep. Hx LBBB. Hx COPD. Uses inhalers at home. The patient rates the pain 7/10 in severity. Symptoms aggravated by nothing. Symptoms alleviated by nothing. Medications reviewed. Allergies noted. FHx AZ and A fib. - History Of Current Complaint Chief Complaint: EDChestPainROMI Time Seen by Provider: 10/18/19 13:51 Hx Obtained From: Patient Onset/Duration: Lasting Days, Still Present Timing: Constant Severity Currently: Moderate - 7/10 Aggravating Factor(s): Nothing Alleviating Factor(s): Nothing - Allergies/Home Medications Allergies/Adverse Reactions: Allergies Allergy/AdvReac Type Severity Reaction Status Date / Time latex Allergy ITCHY Verified 10/18/19 12:32 morphine Allergy Itching Verified 10/18/19 12:32 Home Medications: Home Medications Armodafinil (NF) [Nuvigil (NF)] 250 mg PO DAILY 09/10/17 [History Confirmed 09/06] Atenolol TAB* [Tenormin TAB* 50 MG] 50 mg PO DAILY 09/10/17 [History Confirmed 10/18/19] DULoxetine DR CAP* [Cymbalta CAP*] 120 mg PO DAILY 09/10/17 [History Confirmed 10/18/19] LORazepam TAB(*) [Ativan 0.5 MG TAB (*)] 0.5 mg PO BID PRN 09/10/17 [History Confirmed 10/18/19] traZODone TAB* [Desyrel TAB*] 100 mg PO BEDTIME 09/10/17 [History Confirmed 09/06] Budesonide/Formote 160/4.5(NF) [Symbicort 160/4.5 (NF)] 2 puff INH BID 12/27/17 [History Confirmed 10/18/19] Ibuprofen TAB* [Motrin TAB* 800 MG] 800 mg PO Q6H PRN 12/27/17 [History Confirmed 10/18/19] Ondansetron [Ondansetron Odt] 4 mg PO BID PRN 12/27/17 [History Confirmed ] Rosuvastatin (NF) [Crestor (NF)] 20 mg PO DAILY 04/03/19 [History Confirmed 09/06] hydroCHLOROthiazide [Hydrochlorothiazide] 12.5 mg PO DAILY 04/03/19 [History Confirmed 10/18/19] Acyclovir OINT 5%(NF) [Zovirax Oint 5%(NF)] 1 applic TOPICAL TID 10/10/19 [ History Confirmed 10/18/19] Albuterol HFA INHALER* [Ventolin HFA Inhaler*] 2 puff INH Q4H PRN 10/10/19 [ History Confirmed 10/18/19] Cyclobenzaprine (NF) [Cyclobenzaprine 5 MG (NF)] 5 - 10 mg PO TID PRN 10/10/19 [ History Confirmed 10/18/19] L.acidoph,Paracasei, B.lactis [Probiotic] 1 each PO DAILY 10/10/19 [History Confirmed 10/18/19] Potassium Citrate (NF) [Urocit-K 10 (NF)] 10 meq PO TID 10/10/19 [History Confirmed 10/18/19] Thyroid,Pork [Radom Thyroid] 60 mg PO DAILY 10/10/19 [History Confirmed ] Tiotropium CAPSULE (NF) [Spiriva CAPSULE (NF)] 1 cap.inh INH DAILY 10/10/19 [ History Confirmed 10/18/19] Topiramate TAB(*) [Topamax 100 mg tab] 100 mg PO BID 10/10/19 [History Confirmed 10/18/19] Vilazodone (NF) [Viibryd (NF)] 20 mg PO DAILY 10/10/19 [History Confirmed ] PMH/Surg Hx/FS Hx/Imm Hx Endocrine/Hematology History: Reports: Hx Thyroid Disease - HYPOTHYROIDISM Denies: Hx Diabetes Cardiovascular History: Reports: Hx Angina, Hx Hypercholesterolemia, Hx Hypertension - ON MEDICATION FOR, Other Cardiovascular Problems/Disorders - LEFT BUNDLE BRANCH BLOCK Denies: Hx Coronary Artery Disease, Hx Myocardial Infarction, Hx Pacemaker/ ICD, Hx Valvular Heart Disease Respiratory History: Reports: Hx Asthma, Hx Chronic Obstructive Pulmonary Disease (COPD), Hx Sleep Apnea GI History: Reports: Hx Hiatal Hernia, Hx Irritable Bowel, Other GI Disorders - RETROPERTINEAL HERNIA History: Reports: Hx Kidney Stones - HX OF HOSPITALIZED X 4 IN THE PAST 6MO FOR THIS Musculoskeletal History: Reports: Hx Orthopedic Injury - FX RIGHT FOOT , Hx Tendonitis - ELBOWS, Other Musculoskeletal History - DDD Sensory History: Reports: Hx Cataracts - BILATERAL, Hx Contacts or Glasses - GLASSES Denies: Hx Hearing Aid Opthamlomology History: Reports: Hx Cataracts - BILATERAL, Hx Contacts or Glasses - GLASSES Neurological History: Reports: Hx Migraine - TREATS WITH BUTALBITAL, Other Neuro Impairments/Disorders - FIBROMYALGIA Psychiatric History: Reports: Hx Anxiety - PRN MEDICATION FOR, Hx Depression Denies: Hx Panic Disorder - Cancer History Hx Chemotherapy: No Hx Radiation Therapy: No - Surgical History Surgery Procedure, Year, and Place: 6 OVARIAN SURGERYS (TUBAL SX & RE[place]AL) [place] [facility] [place] [facility] [place]. [place] [facility] [place] NUMEROUS KIDNEY SURGERIES FOR STONES Hx Anesthesia Reactions: No - Immunization History Date of Tetanus Vaccine: UTD Date of Influenza Vaccine: UTD Infectious Disease History: No Infectious Disease History: Denies: Hx Clostridium Difficile, Hx Hepatitis, Hx Human Immunodeficiency Virus (HIV), Hx of Known/Suspected MRSA, Hx Shingles, Hx Tuberculosis, Hx Known/ Suspected VRE, Hx Known/Suspected VRSA, History Other Infectious Disease, Traveled Outside the [place] in Last 30 Days - Family History Known Family History: Positive: Cardiac Disease - Father with AZ at 50, mother and brother have A fib, Other - Breast CA - Social History Alcohol Use: Occasionally Hx Substance Use: No Substance Use Type: Reports: None Hx Tobacco Use: Yes Smoking Status (MU): Former Smoker Amount Used/How Often: 1-1.5 PPD X 25 YEARS Review of Systems Positive: Fever, Chills, Fatigue Positive: Other - chest heaviness Positive: Shortness Of Breath, Cough Positive: Other - Right thigh pain, throbbing, soreness Neurological/Mental Status: Other - Dizziness All Other Systems Reviewed And Are Negative: Yes Physical Exam - Summary Physical Exam Summary: Constitutional: Well-developed, Well-nourished, Alert. (-) Distressed Skin: Warm, Dry HENT: Normocephalic; Atraumatic Eyes: Conjunctiva normal Neck: Musculoskeletal ROM normal neck. (-) JVD, (-) Stridor, (-) Nuchal rigidity Cardio: Rhythm regular, rate normal, Heart sounds normal; Intact distal pulses; Radial pulses are 2+ and symmetric. (-) Murmur Pulmonary/Chest wall: Effort normal. (-) Respiratory distress, (-) Wheezes, (-) Rales Abd: Soft, (-) tenderness, (-) Distension, (-) Guarding, (-) Rebound Musculoskeletal: (-) Edema Lymph: (-) Cervical adenopathy Neuro: Alert, Oriented x3 Psych: Mood and affect Normal Triage Information Reviewed: Yes Vital Signs On Initial Exam: Initial Vitals Temp Pulse Resp BP Pulse Ox 97.2 F 67 19 118/84 100 10/18/19 12:26 10/18/19 12:26 10/18/19 12:26 10/18/19 12:26 10/18/19 12:26 Vital Signs Reviewed: Yes Procedures - Sedation Patient Received Moderate/Deep Sedation with Procedure: No Diagnostics - Vital Signs Vital Signs Temp Pulse Resp BP Pulse Ox 10/18/19 12:26 97.2 F 67 19 118/84 100 - Laboratory Lab Results: Lab Results 10/18/19 10/18/19 Range/Units 13:27 13:27 WBC 8.2 (3.5-10.8) 10^3/uL RBC 4.61 (3.70-4.87) 10^6 /uL Hgb 13.8 (12.0-16.0) g/dL Hct 40 (35-47) % MCV 87 (80-97) fL MCH 30 (27-31) pg MCHC 35 (31-36) g/dL RDW 13 (10-15) % Plt Count 230 (150-450) 10^3/uL MPV 7.5 (7.4-10.4) fL Neut % (Auto) 62.4 % Lymph % (Auto) 26.6 % [place] % (Auto) 8.3 % Eos % (Auto) 1.9 % Baso % (Auto) 0.8 % Absolute Neuts (auto) 5.1 (1.5-7.7) 10^3/ul Absolute Lymphs (auto) 2.2 (1.0-4.8) 10^3/ul Absolute Monos (auto) 0.7 (0-0.8) 10^3/ul Absolute Eos (auto) 0.2 (0-0.6) 10^3/ul Absolute Basos (auto) 0.1 (0-0.2) 10^3/ul Absolute Nucleated RBC 0.0 10^3/ul Nucleated RBC % 0.0 INR (Anticoag Therapy) 1.22 H (0.82-1.09) Result Diagrams: 10/18/19 13:27 10/18/19 13:27 Lab Statement: Any lab studies that have been ordered have been reviewed, and results considered in the medical decision making process. - Radiology CXR Radiology Interpretation Completed By: Radiologist - IMPRESSION: #. Stigmata of obstructive lung disease. No acute pulmonary or cardiac process evident. ED physician has reviewed this imaging report. - Ultrasound Venous doppler study Ultrasound Interpretation Completed By: Radiologist - IMPRESSION: NO EVIDENCE OF DEEP VENOUS THROMBOSIS IS IDENTIFIED. ED physician has reviewed this imaging report. - EKG 1216 Cardiac Rate: NL - 63 BPM EKG Rhythm: Sinus Rhythm EKG Comparison: No Significant Change - 10/10/19 Summary of EKG Findings: LBBB. ED physician has reviewed and interpreted this EKG. Re-Evaluation - Re-Evaluation First Eval Re-Evaluation Time: 16:20 Change: Improved - updated patient on labs, neg US. Will follow up w PCP. Complex Multi-Symp Course/Dx Course Of Treatment: 59 y/o F w hx COPD, recent PNA p/w continued SOB, CP and now R thigh pain. VSS NAD. Not tachypneic or hypoxic. Chest Pain DDX: The patient is well appearing, with stable vitals. Given the patient's clinical presentation, highest on differential is atypical CP. Although less likely, differential also includes the following: --Pneumothorax: Equal breath sounds, story inconsistent since gradual onset of symptoms. CXR shows no evidence of pneumothorax. Unlikely. --Cardiac tamponade: The history and physical are not concerning for tamponade. No Pulsus Paradoxus, no tachypnea. Unlikely. -- Mediastinitis or esophageal rupture: The history is not consistent, as the patient has had no recent history of significant wretching, instrumentation, or mediastinal surgeries. Unlikely. --Aortic dissection: The patient does not describe the classical tearing chest pain radiating into the back, and the CXR does not show mediastinal widening or other signs of aortic dissection. Unlikely. --PE: Vitals wnl (not hypoxic, tachycardic or tachypneic). Wells low risk, d dimer <200. --ACS: The initial EKG shows no ischemic changes. The initial troponin is not elevated x2. Heart score: 3, low risk. regarding SOB, normal d dimer, no e/o PNA on XR, labs unremarkable, 100% on RA. Do not suspect acute process warranting further work up at this time. Will have her follow up w PCP - Diagnoses Provider Diagnoses: Chest pain, Shortness of breath, Right leg pain Discharge ED - Sign-Out/Discharge Documenting (check all that apply): Patient Departure - Discharge Plan Condition: Stable Disposition: HOME Patient Education Materials: Chest Pain (ED), Shortness of Breath (ED) Referrals: Camille Abbott MD [Primary Care Provider] - Additional Instructions: You were seen in the emergency department for shortness of breath leg pain and chest pain. Your EKG (heart tracing), labs and chest x-ray did not show any cause for pain. Your ultrasound did not show blood clot. Important that you follow up with you primary care doctor in the next 1-2 days to help schedule an outpatient stress test. Please return to the emergency department for continued chest pain, trouble breathing, passing out, or if you're concerned. - Billing Disposition and Condition Condition: STABLE Disposition: Home - Attestation Statements Document Initiated by Neehmiah: Yes Documenting Scribe: Jennifer Gomez Provider For Whom Nehemiah is Documenting (Include Credential): Sharon San MD Scribe Attestation: Jennifer Collins, scribed for Sharon San MD on 10/18/19 at 1648. Scribe Documentation Reviewed: Yes Provider Attestation: The documentation as recorded by the Jennifer montoya accurately reflects the service I personally performed and the decisions made by me, Sharon San MD Status of Scribe Document: Viewed
[2019-10-18 14:06] LABS: Albumin 4.1 g/dL (3.2-5.2); Albumin/Globulin Ratio 1.3 (1-3); BUN/Creatinine Ratio 19.8 (8-20); Calcium 9.7 mg/dL (8.6-10.3); EGFR African American 67.7 (>60); EGFR Non-African American 55.9 (>60); Globulin 3.1 g/dL (2-4); Potassium 3.4 mmol/L (3.5-5.0); Total Bilirubin 0.3 mg/dL (0.2-1.0); Total Protein 7.2 g/dL (6.4-8.9)
[2019-10-18 16:48] VITALS: BP 114/67
== END 2019-10-18 16:48 | disposition home or self-care (01) ==
LOC: ED 12:11
DX: R07.9 Chest pain, unspecified (principal); R06.02 Shortness of breath; M79.604 Pain in right leg; R53.83 Other fatigue; R05 Cough; I44.7 Left bundle-branch block, unspecified; Z87.891 Personal history of nicotine dependence; R42 Dizziness and giddiness; F41.9 Anxiety disorder, unspecified; F32.9 Major depressive disorder, single episode, unspecified; E03.9 Hypothyroidism, unspecified; E78.00 Pure hypercholesterolemia, unspecified; I10 Essential (primary) hypertension; Z87.442 Personal history of urinary calculi; Z88.6 Allergy status to analgesic agent; Z79.899 Other long term (current) drug therapy; R94.31 Abnormal electrocardiogram [ECG] [EKG]
CPT/HCPCS: 36415; 71046; 80053; 84484; 85025; 85379; 85610; 93005; 99282